=== PATIENT | female | born 1950 | race Caucasian/White ===

== ENCOUNTER → 2020-08-11 11:18 | Outpatient (BNVA) | payer MEDICARE, SELFPAY | PROVIDERS: PCP Family Medicine; Visit Provider Surgery | DX: K40.90 Unilateral inguinal hernia, without obstruction or gangrene, not specified as recurrent (principal) | CPT/HCPCS: 99202 ==

== ENCOUNTER 2020-09-06 13:17 | Outpatient (REF) | payer MEDICARE, SELFPAY ==
--- NOTE | ~2020-09-06 | CT_ITS ---
EXAMINATION: CT ABDOMEN AND PELVIS WITHOUT CONTRAST CLINICAL INFORMATION: Unilateral inguinal hernia COMPARISON: None TECHNIQUE: Multidetector volumetric imaging was performed from the superior aspect of the liver through the pubic symphysis. Sagittal and coronal reformatted images were obtained on the technologist's workstation. This CT examination was performed using dose optimization techniques as appropriate, variously including the following: *Automated exposure control *Adjustment of mA and/or kV according to patient size (this includes techniques or standardized protocols for targeted exams where dose is matched to indication/reason for exam; i.e. extremities or head) *Use of iterative reconstruction technique DLP: 739 mGy-cm FINDINGS: LUNG BASES: The visualized lung bases are clear. There is a moderate size esophageal hernia. LIVER, GALLBLADDER, AND BILIARY TREE: The liver is normal in size, shape, and attenuation. No focal hepatic lesion or biliary ductal dilatation is present. The gallbladder is unremarkable with no evidence of radiopaque gallstones, gallbladder wall thickening, or obvious pericholecystic inflammatory changes. PANCREAS: Unremarkable. SPLEEN: Unremarkable. ADRENAL GLANDS: Unremarkable. KIDNEYS AND URETERS: The kidneys are normal in size, shape, and attenuation. No hydronephrosis, hydroureter, or calculi seen. No perinephric stranding. BLADDER: Not optimally distended. GASTROINTESTINAL TRACT: There is diverticulosis of the colon. No evidence of diverticulitis is seen. The small and large bowel are otherwise unremarkable. The appendix is unremarkable. There is a moderate size esophageal hernia. ABDOMINAL WALL: There is a large right inguinal hernia containing fat. There is a smaller more lateral right groin hernia containing fat. Extends superiorly. This appears to be at the inferior margin of the rectus sheath and may represent an atypical appearing spigelian hernia. LYMPH NODES: Normal. VASCULAR: There is evidence of atherosclerotic disease. There is mild dilatation ectasia of the left lateral wall of the infrarenal abdominal aorta. This measures 2.2 x 2.5 cm in AP and transverse dimension axial image 35 series 3. PELVIC VISCERA: The uterus appears to have been removed. There is a 3 x 2.4 cm cyst in the right pelvis with a small area of wall calcification and questionable septation and a smaller 1.2 x 2 cm left pelvic cyst with wall calcification and central calcification questionable for bilateral adnexal cysts. OSSEOUS STRUCTURES: There are mild degenerative changes of the spine and hip joints. CT/CT abdomen pelvis wo con IMPRESSION: Large right inguinal hernia containing fat. Second more lateral smaller fat-containing hernia that courses superiorly, question representing atypical appearance of a spigelian hernia at the inferior margin of the rectus sheath. Moderate-sized esophageal hernia probably representing a hiatal hernia. Diverticulosis colon. Bilateral partially calcified complex pelvic cysts probably representing ovarian cysts. Follow-up pelvic ultrasound recommended.
== END 2020-09-06 13:18 | disposition home or self-care (01) ==
LOC: HO.CT 13:17
PROVIDERS: PCP Family Medicine; Visit Provider Surgery
DX: K40.90 Unilateral inguinal hernia, without obstruction or gangrene, not specified as recurrent (principal)
CPT/HCPCS: 74176

== ENCOUNTER 2020-09-07 07:47 | Day surgery (SDC) | payer MEDICARE, SELFPAY ==
[2020-09-01 14:46] VITALS: BMI 31.9
--- NOTE | 2020-09-06 09:12 | HO.ANESPROP2 ---
Documented by User: Cris Zhang 09/06/20 09:13 HPI - Anesthesia Eval Consult details Narrative: 70yo F for Right Hernia Repair Inguinal with Mesh PMFSH Active Problems Active Problems: All Active Problems (Updated 09/01/20 @ 14:06 by Raysa Horne) Hyperlipidemia (Acute) Hypertension (Acute) Right inguinal hernia (Acute) Past Medical History Medical History Anxiety COVID-19 vaccine series completed Depression GERD (gastroesophageal reflux disease) Hyperlipidemia Hypertension Right inguinal hernia Surgical History Surgical History History of hernia surgery History of lumpectomy of left breast History of partial hysterectomy History of shoulder replacement History of tonsillectomy Social History Social History Alcohol intake: never Smoking Status: Former smoker Smoking Quit Date: 2007 Use of substances other than those prescribed or required for medical reasons: No Are you DNR?: No Advance Directives: No Advance Directives Information Provided: No Advance Directives on File: No Meds Allergies Allergy/AdvReac Type Severity Reaction Status Date / Time pravastatin Allergy Intermediate muscle Verified 09/07/20 08:12 cramping amlodipine AdvReac Intermediate swelling Verified 09/07/20 08:12 lisinopril AdvReac Intermediate cough Verified 09/07/20 08:12 narcotics Allergy Intermediate Nausea and Uncoded 09/01/20 14:42 Vomiting Home Medications Medication Instructions Recorded Confirmed Last Taken Type calcium carbonate 600 mg (1,500 1 cap PO DAILY 08/11/20 09/01/20 Unknown History mg)-vitamin D3 500 unit capsule ezetimibe 10 mg tablet 10 mg PO DAILY 08/11/20 09/01/20 Unknown History hydrochlorothiazide 50 mg tablet 50 mg PO DAILY 08/11/20 09/01/20 Unknown History metoprolol succinate 100 mg 100 mg PO DAILY 08/11/20 09/01/20 Unknown History tablet,extended release 24 hr multivitamin 1 tab PO DAILY 08/11/20 09/01/20 Unknown History omeprazole 20 mg capsule,delayed 20 mg PO DAILY 08/11/20 09/01/20 Unknown History release Exam Exam Date and Time: September 06, 2020911 Height,Weight and Vital Signs: Height 5 ft 8 in Weight 95.254 kg Assessment and Plan Assessment Anesthesia Assessment: Chart Reviewed Documented by User: Lenore Bonds 09/07/20 09:05 PMFSH Past Medical History Medical History Anxiety COVID-19 vaccine series completed Depression GERD (gastroesophageal reflux disease) Hyperlipidemia Hypertension Right inguinal hernia Surgical History Surgical History History of hernia surgery History of lumpectomy of left breast History of partial hysterectomy History of shoulder replacement History of tonsillectomy Social History Social History Alcohol intake: never Smoking Status: Former smoker Smoking Quit Date: 2007 Use of substances other than those prescribed or required for medical reasons: No Are you DNR?: No Advance Directives: No Advance Directives Information Provided: No Advance Directives on File: No Meds Allergies Allergy/AdvReac Type Severity Reaction Status Date / Time pravastatin Allergy Intermediate muscle Verified 09/07/20 08:12 cramping amlodipine AdvReac Intermediate swelling Verified 09/07/20 08:12 lisinopril AdvReac Intermediate cough Verified 09/07/20 08:12 narcotics Allergy Intermediate Nausea and Uncoded 09/01/20 14:42 Vomiting Home Medications Medication Instructions Recorded Confirmed Last Taken Type calcium carbonate 600 mg (1,500 1 cap PO DAILY 08/11/20 09/01/20 Unknown History mg)-vitamin D3 500 unit capsule ezetimibe 10 mg tablet 10 mg PO DAILY 08/11/20 09/01/20 Unknown History hydrochlorothiazide 50 mg tablet 50 mg PO DAILY 08/11/20 09/01/20 Unknown History metoprolol succinate 100 mg 100 mg PO DAILY 08/11/20 09/01/20 Unknown History tablet,extended release 24 hr multivitamin 1 tab PO DAILY 08/11/20 09/01/20 Unknown History omeprazole 20 mg capsule,delayed 20 mg PO DAILY 08/11/20 09/01/20 Unknown History release Exam Airway Mallampati Class: III Neck ROM: Full Partial: Upper Loose/Missing/Broken Teeth: No Heart: RRR Lungs: CTA Assessment and Plan Assessment Anesthesia Assessment: Anesthesia Plan Discussed and Chart Reviewed Final Anesthetic Review NPO: Yes ASA Class: II Final Preanesthetic Review: Meds/Allgs Chart Reviewed, Consent Obtained/Reviewed and Anes Risks/Benef Reviewed Patient Risk: Low Procedure Risk: Low Anesthetic Plan Anesthetic Plan: GA Disposition: Standard PACU
[2020-09-07] VITALS (7 sets, daily range): BP systolic 128–146; BP diastolic 63–76; PULSE 57–71; RESP 16–20; TEMP 36.5–37; O2SAT 93–99
--- NOTE | 2020-09-07 08:23 | MHC.SHP ---
Pre-Procedural Eval Section B Chief Complaint: Right Inguinal Hernia Allergies: Allergies Allergy/AdvReac Type Severity Reaction Status Date / Time pravastatin Allergy Intermediate muscle Verified 09/07/20 08:12 cramping amlodipine AdvReac Intermediate swelling Verified 09/07/20 08:12 lisinopril AdvReac Intermediate cough Verified 09/07/20 08:12 narcotics Allergy Intermediate Nausea and Uncoded 09/01/20 14:42 Vomiting Plan I have reviewed the history and physical and performed a pertinent physical examination on my patient. No changes have occurred unless specified. CT done yesterday reviewed - possibly another small hernia, fat containing immediately lateral to right inguinal hernia.
[2020-09-07] MEDS: Lactated Ringers 1,000 ML 100 ML IVCONT (08:25)
--- NOTE | 2020-09-07 10:03 | P.OP_ITS ---
Operative Note Operative Note Date of Service: 09/07/20 Narrative: Preop diagnosis: Recurrent right inguinal hernia Postop diagnosis: Recurrent right inguinal hernia Procedure: Repair of recurrent right inguinal hernia with Prolene mesh Surgeon: Yandel Castro MD Enrollment Management Vice President: none The patient is a 70-year-old female who a mass on the right groin that was partially reducible consistent with an inguinal hernia. She actually stated that she had right inguinal hernia repair about 30 years ago without mesh. She had a CAT scan done showing a large fat containing right inguinal hernia. Adjacent to this immediately and laterally was another smaller fat-containing hernia as well. She understood the technique of repair of this right inguinal hernia with mesh. She was aware of the risks, benefits and alternatives. She was brought to the operating room and placed supine on table under general anesthesia via laryngeal mask airway. The right groin was prepped and draped in usual sterile fashion. A surgical time-out was done. The patient received cefazolin 2 g IV preoperati vely. I infiltrated the planned line incision using lidocaine 1%. I then made an incision on the skin generously using a blade number 15. This was carried down to full-thickness of skin and subcutaneous fat. The patient had thick amount subcutaneous fat so we continued to gently dissect this until we were able to visualize what appeared to be the fat-containing hernia. I bluntly dissected the rest of subcutaneous fat from the hernia until was able to clearly define this hernia along with the external ring. I dissected the external oblique external to achieve good exposure of the external ring. I continued to dissect the fat-containing hernia down to the external ring until I was was able to clearly visualize its neck through the external ring. I opened up the external ring by dividing the external oblique aponeurosis using electrocautery. I applied hemostats on both divided edges. I then proceeded to gently dissect the underside of this external oblique aponeurosis to create a pocket for the mesh. By doing so I was able to clearly visualize the internal ring along with the large herniated fat going through this. I was able to completely reduce the large hernia contents through this internal ring. By gently palpating more laterally and superiorly I was able to actually see another much smaller hernia also fat-containing. I therefore extended the incision on the external oblique aponeurosis more laterally. This allowed better visualization of this other smaller hernia. The patient had previous hernia surgery so there were adhesions tethering the internal oblique to the external oblique aponeurosis so we had to carefully divide these adhesions and gently dissect this to create better planes. Again the planes were not well defined because of the previous surgery. I was able to create what I felt was enough pocket between the external oblique aponeurosis and the internal oblique for the mesh to cover both defects. I used a 6 by 3 in flat Prolene mesh. I trimmed this to make sure that we were able to fit this within the pocket underneath the external oblique aponeurosis and not allow this to curl up. I flattened the mesh to overlie the entire floor of the canal and ensure coverage of the 2 hernias. I secured the mesh inferomedially to the pubic ramus using David 2 0 stitch and and ran this suture medially through the internal oblique. I then applied a separate Prolene 2-0 stitch to reappose the lateral edge of the mesh to the shelving edge of the inguinal ligament from inferomedially all the way laterally and superiorly. Applied separate sutures to the superior part of the mesh to secure this to the internal oblique more superiorly. I made sure that there were no significant gaps in between the sutures. I copiously irrigated. I observed to make sure we had good hemostasis. A mesh appeared secure and flat all the way superiorly and inferiorly. I then proceeded to close the overlying external oblique aponeurosis with runn ing Dexon 2-0 stitch to further flatten and secure the mesh on the floor of the canal. I continued this running Dexon 2-0 stitch although inferiorly to re- create the external ring. I then irrigated the thick layer of subcutaneous fat. I reapposed the thick subcutaneous layer with Dexon 3-0 interrupted sutures. Skin closure was achieved with Dexon 4-0 subcuticular running stitch. I then infiltrated the area with Marcaine 0.5% for postop analgesia. Steri-Strips and dressings where then applied. The procedure was then completed. The patient tolerated procedure well . No immediate complications. Initial final counts of sponges and instruments were correct. Estimated blood loss was about 15 cc. The patient was extubated without difficulty and transferred to recovery room with stable vital signs.
--- NOTE | 2020-09-07 10:11 | P.BOP_ITS ---
Brief Operative Note Date of Service: 09/07/20 Pre-op diagnosis: Right inguinal hernia recurrent Post-op diagnosis: same Procedure: Repair of recurrent right inguinal hernia with mesh Implants: Prolene mesh Surgeon: Yandel Castro MD Anesthesia: GLMA Was an Dietary Cook used for this Procedure?: No Estimated blood loss (mL): 15 Pathology: none sent Condition: stable Disposition: PACU
[2020-09-07] MEDS: HYDROmorphone HCl 2 MG TABLET 1 MG PO (10:35)
== END 2020-09-07 11:19 ==
LOC: HO.SSS 07:47
PROVIDERS: PCP Family Medicine; Visit Provider Surgery
PROC: (CPT 49520; principal; 2020-09-07 09:50)
DX: K40.91 Unilateral inguinal hernia, without obstruction or gangrene, recurrent (principal); K40.90 Unilateral inguinal hernia, without obstruction or gangrene, not specified as recurrent; I10 Essential (primary) hypertension; E78.5 Hyperlipidemia, unspecified; Z79.899 Other long term (current) drug therapy; Z88.8 Allergy status to other drugs, medicaments and biological substances; Z87.891 Personal history of nicotine dependence
CPT/HCPCS: 49520; C1781; J0690; J1100; J2250; J2405; J3010

== ENCOUNTER → 2020-09-20 10:29 | Outpatient (BNVA) | payer MEDICARE, SELFPAY | PROVIDERS: PCP Family Medicine; Visit Provider Surgery | DX: Z48.815 Encounter for surgical aftercare following surgery on the digestive system (principal); Z87.19 Personal history of other diseases of the digestive system | CPT/HCPCS: 99212 ==

== ENCOUNTER 2020-10-15 08:16 | Outpatient (REF) | payer MEDICARE, SELFPAY ==
--- NOTE | 2020-10-15 12:48 | MHC.AU.ANO ---
Adult Audiological Evaluation Date of Visit: 10/15/20 Reason for Appointment: Patient has been noticing difficulty hearing out of her left ear. She cannot recall an injury or illness that coincided with the reduction in hearing. Does patient feel they have a hearing loss?: Yes If Yes, Which Ear?: Left Ear When Was Hearing Difficulty First Noticed?: Patient is unsure, but feels it developed quickly Has hearing been tested previously?: No Hearing Handicap Inventory: HHIE SCORE: 32 Based on HHIE score, patient has: Severe perceived hearing handicap Ear History: Ear Deformity: None Reported Recent Ear Drainage: None Reported Recent Ear Pain: None Reported Family History of Hearing Loss?: Yes: Mother and Father Recent Ear Infections: None Reported Ear Infections in Childhood: None Reported History of Ear Wax Buildup: None Reported Previous Ear Surgery: None Reported Bothersome Tinnitus/Ringing/Noises in Ears: None Reported Ear used on the phone: Right Ear Blocked/Full Sensation in Ear(s): None Reported History of occupational noise exposure?: No History: No Medical History: Medical History: High Blood Pressure, Vascular Problems Otoscopy: Right Ear: Unremarkable Left Ear: Unremarkable Tympanometry: Tympanometry performed due to: To assess integrity of the middle ear system Right Ear: Normal Middle Ear System (Type A) Left Ear: Normal Middle Ear System (Type A) Hearing Evaluation: Transducer(s) Used: Circumaural Headphones Method: Conventional Audiometry Stimuli Used: Pure Tones Right Ear: Description of Hearing: Mild sloping to moderate and rising to mild sensorineural hearing loss Left Ear: Description of Hearing: Mild sloping to moderately-severe, rising to moderate and sloping to severe sensorineural hearing loss Speech Recognition Threshold (SRT): Method Used: Recorded Lists Stimuli Used: Spondee Words Right Ear: 40 dBHL Left Ear: 50 dBHL Word Discrimination: Method: Recorded Lists Word Lists Used: NU-6 Right Ear: 92% at 75 dBHL Left Ear: 84% at 80 dBHL Most Comfortable Level (MCL): Right Ear: 75 dBHL Left Ear: 80 dBHL Recommendations: Referral to Ear, Nose, and Throat is highly recommended to address asymmetrical sensorineural hearing loss. Patient has a pair of Phonak Bolero Q50-SP that belonged to her late . She would like to have the left hearing aid reprogrammed for her. See separate hearing aid follow-up report for details. Diagnosis: Primary Diagnosis: H90.3 Bilateral Sensorineural Hearing Loss Services Performed: Comprehensive Audiological Evaluation (CPT 59545), Tympanometry (CPT 04098) Signature: Provider: Tom Capps, CCC-A
--- NOTE | 2020-10-15 12:50 | MHC.AU.FUL ---
Hearing Instrument Follow-Up Date of Visit: 10/15/20 Left Ear: Archeologist: Phonak Model: Bolero Q50-SP Serial Number: [id number] Repair Warranty: 12/30/2014 Battery Size: 13 Tubing: Size 1 slim tube Type of Dome: Small Power Dome Date of Fitting: Transfer of care on 10/15/2020 Follow-Up Summary: Patient was seen for audiological evaluation. See report for details. Patient has a pair of Phonak Bolero B50-SP that belonged to her late and were originally dispensed from this clinic. She would like to have the left hearing aid reprogrammed for her left ear. Another family member may be using the right hearing aid; however, if they choose not to, then she may like the right hearing aid reprogrammed for her use as well. Hearing aid was reprogrammed. The old mold was thrown out and replaced with a size 1 slim tube and small open dome. Target gain set to 90% for patient comfort, as she felt her voice was too loud at 100%. Verifit was run and levels adjusted to better reach targets. Patient was pleased with the sound of the instrument. Volume control switch is enabled. Program button is deactivated. Hearing aid care and use were discussed and practiced. Recommendations: Hearing aid follow-up has been scheduled. Patient paid $185 transfer of care fee. Diagnosis Code(s): Primary Diagnosis: H90.3 Bilateral Sensorineural Hearing Loss Signature: Provider: Tom Capps, [facility]
== END 2020-10-15 08:17 | disposition home or self-care (01) ==
LOC: HO.SH 08:16
PROVIDERS: Visit Provider Family Medicine
DX: Z46.1 Encounter for fitting and adjustment of hearing aid (principal); H90.3 Sensorineural hearing loss, bilateral
CPT/HCPCS: 92557; 92567; V5011

== ENCOUNTER 2020-10-15 09:37 | Outpatient (REF) | payer SELFPAY | END 2020-10-15 09:38 | disposition home or self-care (01) | LOC: HO.HAP 09:37 | PROVIDERS: Visit Provider Family Medicine | DX: Z46.1 Encounter for fitting and adjustment of hearing aid (principal); H90.3 Sensorineural hearing loss, bilateral | CPT/HCPCS: V5011 ==

== ENCOUNTER 2021-04-04 09:52 | Outpatient (REF) | payer MEDICARE, SELFPAY ==
--- NOTE | ~2021-04-04 | US_ITS ---
EXAMINATION: US THYROID CLINICAL INFORMATION: Nontoxic multinodular goiter. COMPARISON: Ultrasound soft tissue head/neck thyroid dated 01/15/2020 and 12/09/2018. TECHNIQUE: Linear transducer grayscale and color Doppler examination with attention to the region of the thyroid. FINDINGS: SIZE: Measurements of the thyroid lobes and nodules are given in sagittal, anteroposterior and transverse dimensions respectively. Right Thyroid Lobe: 4.5 x 2.4 x 2.3 cm, volume 12.9 mL. Previously 0.0 x 2.1 x 2.2 cm, volume 9.7 mL. Parenchyma: The gland echotexture is homogeneous. Thyroid vascularity is increased. Left Thyroid Lobe: 3.9 x 0.9 x 1.6 cm, volume 2.9 mL. Previously 4.2 x 1.6 x 1.4 cm, volume 4.9 mL. Parenchyma: The gland echotexture is homogeneous. Thyroid vascularity is normal. Isthmus: 0.38 cm in maximum AP dimension. Previously 0.5 cm. total number of nodules greater than or equal to 1 cm: 1. Supervisor Felting nodules are described as follows: 1. Location: Right mid. Size: 2.0 x 1.3 x 1.8 cm, volume 2.3 mL. Previously: 2.3 x 1.5 x 2.0 cm, volume 3.6 mL. Nodule characteristics: Composition: Solid/almost completely solid (2). Echogenicity: Cannot be determined (1). Shape: Not taller than wide (0). Margins: Smooth (0). Echogenic Foci: None (0). ACR TI-RADS total points: 3 Previous: n/a ACR TI-RADS category: 3 Previous: n/a Significant change in size (>/= 20% in 2 dimensions and minimal increase of 2 mm or 50% or greater increase in volume): No Change in features: No Change in ACR TI-RADS risk category: n/a 2. Location: Right mid. Size: 0.44 x 0.34 x 0.48 cm, volume 0.04 mL. Previously: Not seen previously. Nodule characteristics: Composition: Solid (2). Echogenicity: Hypoechoic (2). Shape: Not taller than wide (0). Margins: Smooth (0). Echogenic Foci: Macrocalcifications (1). ACR TI-RADS total points: 5 Previous: n/a ACR TI-RADS category: 4 Previous: n/a Significant change in size (>/= 20% in 2 dimensions and minimal increase of 2 mm or 50% or greater increase in volume): No Change in features: No Change in ACR TI-RADS risk category: n/a 3. Location: Left mid. Size: 0.38 x 0.27 x 0.38 cm, volume 0.02 mL. Previously: 0.39 x 0.27 x 0.34 cm, volume 0.02 mL. Nodule characteristics: Composition: Solid (2). Echogenicity: Hypoechoic (2). Shape: Not taller than wide (0). Margins: Smooth (0). Echogenic Foci: None (0). ACR TI-RADS total points: 4 Previous: n/a ACR TI-RADS category: 4 Previous: n/a Significant change in size (>/= 20% in 2 dimensions and minimal increase of 2 mm or 50% or greater increase in volume): No Change in features: No Change in ACR TI-RADS risk category: n/a 4. Location: Left inferior. Size: 0.41 x 0.27 x 0.32 cm, volume 0.02 mL. Previously: 0.31 x 0.1 x 0.6 cm, volume 0.01 mL. Nodule characteristics: Composition: Solid (2). Echogenicity: Hyperechoic (1). Shape: Not taller than wide (0). Margins: Smooth (0). Echogenic Foci: None (0). ACR TI-RADS total points: 3 Previous: n/a ACR TI-RADS category: 3 Previous: n/a Significant change in size (>/= 20% in 2 dimensions and minimal increase of 2 mm or 50% or greater increase in volume): No Change in features: No Change in ACR TI-RADS risk category: n/a NODES: No lymphadenopathy is seen in the tissue surrounding the thyroid gland. US/US thyroid IMPRESSION: Previously noted nodules are stable. There is a new 5 mm maximum dimension Ti-RADS Category 4 nodule within the right mid gland. Continued follow-up is recommended for the category 3 and 4 nodules. ACR TI-RADS RECOMMENDATION REFERENCE: Ultrasound-guided fine-needle aspiration, followup ultrasound, no further follow up. * TR1 (0 point) and TR 2 (2 points): No FNA or follow up * TR3 (3 points): FNA if more than or equal to 2.5 cm in maximum dimension, followup ultrasound in 1, 3 and 5 years if 1.5 to 2.4 cm in maximum dimension. * TR4 (4-6 points): FNA if more than or equal to 1.5 cm in maximum dimension, followup ultrasound in 1, 2, 3 and 5 years if 1 to 1.4 cm in maximum dimension. * TR5 (more than or equal to 7 points): FNA if more than or equal to 1 cm in maximum dimension, followup ultrasound every year for 5 years if 0.5 to 0.9 cm in maximum dimension. * TR3, TR4 or TR5 nodules that are below the size threshold for follow up receive no follow up.
== END 2021-04-04 09:53 | disposition home or self-care (01) ==
LOC: HO.US 09:52
PROVIDERS: PCP Family Medicine; Visit Provider Internal Medicine
DX: E04.2 Nontoxic multinodular goiter (principal)
CPT/HCPCS: 76536

== ENCOUNTER → 2021-04-18 10:01 | Outpatient (BNVA) | payer MEDICARE, SELFPAY | PROVIDERS: PCP Family Medicine; Visit Provider Internal Medicine | DX: Z13.89 Encounter for screening for other disorder (principal) | CPT/HCPCS: Q3014 ==

== ENCOUNTER 2021-04-20 09:14 | Outpatient (REF) | payer MEDICARE, SELFPAY ==
[2021-04-20 12:03] LABS: COVID-19 Test Negative (Negative)
== END 2021-04-20 09:15 | disposition home or self-care (01) ==
LOC: HO.LAB 09:14
PROVIDERS: Visit Provider Internal Medicine
DX: Z20.822 Contact with and (suspected) exposure to COVID-19 (principal)
CPT/HCPCS: 36415; 87635; C9803

== ENCOUNTER → 2021-05-24 10:19 | Outpatient (BNVA) | payer MEDICARE, SELFPAY | PROVIDERS: PCP Family Medicine; Visit Provider Surgery Vascular Surgery | DX: I83.11 Varicose veins of right lower extremity with inflammation (principal) | CPT/HCPCS: 99212 ==

== ENCOUNTER 2021-05-30 07:49 | Outpatient (REF) | payer MEDICARE, SELFPAY ==
--- NOTE | ~2021-05-30 | US_ITS ---
EXAMINATION: US LOWER EXTREMITY VENOUS (REFLUX EXAM), BILATERAL CLINICAL INDICATION: This is a 70-year-old female with venous insufficiency and varicose veins. COMPARISON: None. TECHNIQUE: Color flow triplex imaging and compression Doppler was performed to evaluate both the deep and the superficial systems bilaterally. To evaluate the superficial system, the examination was performed in the upright position. Color-flow Doppler ultrasound and compression ultrasound were utilized. In addition, maneuvers were utilized to demonstrate reflux. FINDINGS: 1. DEEP VENOUS ULTRASOUND OF THE RIGHT LOWER EXTREMITY: Common Femoral Vein: Compressible, normal respiratory variation and augmented flow. Femoral vein: Compressible, normal color flow and augmentation. Popliteal Vein: Compressible, normal augmentation. Deep Reflux: There is no evidence of reflux in the deep system in either the common femoral vein or the popliteal vein. There is no evidence of a Liang's cyst. 2. SUPERFICIAL ULTRASOUND WITH DOPPLER OF RIGHT LOWER EXTREMITY: GREAT SAPHENOUS VEIN: Saphenofemoral Junction: 0.9 cm. The reflux time is 2184 ms. Mid Thigh: 0.4 cm. The reflux time is 2932 ms. Above Knee: 0.3 cm. The reflux time is 2708 ms. Below Knee: 0.2 cm. There is no reflux. Mid Calf: 0.3 cm. The reflux time is 2100 ms. Ankle: 0.2 cm. There is no reflux. GSV REFLUX: There is reflux in the great saphenous vein extending from the saphenofemoral junction. DUPLICATED GREAT SAPHENOUS VEIN: There is a duplicated medial great saphenous vein measuring 0.5 cm without reflux. SMALL SAPHENOUS VEIN: Proximal: 0.2 cm Distal: 0.2 cm SSV REFLUX: No evidence of reflux. VEIN OF GIACOMINI: None Imaged. PERFORATORS: None Imaged VARICOSITIES: There are 0.6 cm, 0.4 cm, 0.5 cm varicose veins in the proximal thigh and below the knee, respectively. There is greater than 2 seconds of reflux in these varicose veins. 3. DEEP VENOUS ULTRASOUND OF THE LEFT LOWER EXTREMITY: Common Femoral Vein: Compressible, normal respiratory variation and augmented flow. Femoral Vein: Compressible, normal color flow and augmentation. Popliteal Vein: Compressible, normal augmentation. Deep Reflux: There is no evidence of reflux in the deep system in either the common femoral vein or the popliteal vein. There is no evidence of a Liang's cyst. 4. SUPERFICIAL ULTRASOUND WITH DOPPLER OF LEFT LOWER EXTREMITY: GREAT SAPHENOUS VEIN: Saphenofemoral Junction: 0.8 cm. The reflux time is 1680 ms. Mid Thigh: 0.3 cm. There is no reflux. Above Knee: 0.4 cm. The reflux time is 2544 ms. I will note that the great saphenous vein is not seen at the knee level. Below Knee: 0.4 cm. There is no reflux. Mid Calf: 0.2 cm. The reflux time is 1644 ms. Ankle: 0.3 cm. The reflux time is 1416 ms. GSV REFLUX: No evidence of reflux. DUPLICATED GREAT SAPHENOUS VEIN: There is a 0.4 cm duplicated medial great saphenous vein without reflux. SMALL SAPHENOUS VEIN: Proximal: 0.3 cm Distal: 0.3 cm SSV REFLUX: No evidence of reflux. VEIN OF GIACOMINI: None Imaged. PERFORATORS: None Imaged VARICOSITIES: There are 0.3 cm proximal thigh and below knee, respectively, varicose veins. Below the knee the reflux time is 2184 ms. The proximal thigh varicose vein does not have reflux. US/US venous duplex LE BI IMPRESSION: 1. There is a patent right great saphenous vein with reflux at the saphenofemoral junction. 2. There is a patent right small saphenous vein without reflux. 3. There is a patent right duplicated medial great saphenous vein without reflux. 4. There are varicose veins with reflux in the proximal right thigh and right knee, respectively. 5. There is a patent left great saphenous vein with reflux at the saphenofemoral junction. 6. There is a patent duplicated medial left great saphenous vein without reflux. 7. There is a patent left small saphenous vein without reflux. 8. There are varicose veins on the left measuring 0.3 cm as noted.
== END 2021-05-30 07:50 | disposition home or self-care (01) ==
LOC: HO.US 07:49
PROVIDERS: Visit Provider Surgery Vascular Surgery
DX: I83.11 Varicose veins of right lower extremity with inflammation (principal)
CPT/HCPCS: 93970

== ENCOUNTER → 2021-06-07 10:50 | Outpatient (BNVA) | payer MEDICARE, SELFPAY | PROVIDERS: PCP Family Medicine; Visit Provider Surgery Vascular Surgery | DX: I83.11 Varicose veins of right lower extremity with inflammation (principal) | CPT/HCPCS: 99212 ==

== ENCOUNTER 2021-06-13 06:04 | Day surgery (SDC) | payer MEDICARE, SELFPAY ==
--- NOTE | 2021-06-10 10:26 | HO.ANESPROP2 ---
Documented by User: Cris Zhang NP 06/10/21 10:30 HPI - Anesthesia Eval Consult details Narrative: 70yo F for Right Phlebectomy-micro s/p hernia repair 09/2020 with GA-LMA 4 PMFSH Active Problems Active Problems: All Active Problems (Updated 05/24/21 @ 10:46 by Demetrius Gutierres MD) Varicose veins of right lower extremity with inflammation (Acute) Multinodular thyroid (Acute) Hyperlipidemia (Acute) Hypertension (Acute) Right inguinal hernia (Acute) Past Medical History Medical History Anxiety COVID-19 vaccine series completed Depression GERD (gastroesophageal reflux disease) Hyperlipidemia Hypertension Multinodular thyroid Right inguinal hernia Family History Family History Father Congestive heart failure Mother No problems noted. Surgical History Surgical History History of appendectomy History of hernia surgery History of lumpectomy of left breast History of partial hysterectomy History of shoulder replacement History of tonsillectomy Hx of biopsy Hx of colonoscopy Social History Social History Alcohol intake: never Patient Tobacco Use Status: Former Tobacco user Use of substances other than those prescribed or required for medical reasons: No Have you been hit, kicked, punched, or otherwise hurt by someone within the past year? If so, by whom?: No Advance Directives: No Advance Directives Information Provided: Yes Recently lost weight without trying: No Nutrition Risks: No Nutritional Risk Patient : No Meds Allergies Allergy/AdvReac Type Severity Reaction Status Date / Time pravastatin Allergy Intermediate muscle Verified 06/07/21 10:55 cramping amlodipine AdvReac Intermediate swelling Verified 06/07/21 10:55 lisinopril AdvReac Intermediate cough Verified 06/07/21 10:55 narcotics Allergy Intermediate Nausea and Uncoded 06/07/21 10:55 Vomiting Home Medications Medication Instructions Recorded Confirmed Last Taken Type calcium carbonate 600 mg-vitamin 1 cap PO DAILY 08/11/20 04/18/21 Unknown History D3 12.5 mcg (500 unit) capsule (Calcium 600 with Vitamin D3) ezetimibe 10 mg tablet 10 mg PO DAILY 08/11/20 04/18/21 06/13/21 History hydrochlorothiazide 50 mg tablet 50 mg PO DAILY 08/11/20 04/18/21 06/13/21 History metoprolol succinate 100 mg 100 mg PO DAILY 08/11/20 04/18/21 06/13/21 History tablet,extended release 24 hr multivitamin 1 tab PO DAILY 08/11/20 04/18/21 Unknown History omeprazole 20 mg capsule,delayed 20 mg PO DAILY 08/11/20 04/18/21 06/13/21 History release lorazepam 1 mg tablet 1 mg PO BEDTIME PRN 04/18/21 04/18/21 Unknown History ropinirole 0.5 mg tablet 0.5 mg PO BEDTIME 04/18/21 04/18/21 Unknown History Exam Exam Date and Time: June 10, 2021 102 Assessment and Plan Assessment Anesthesia Assessment: Chart Reviewed Documented by User: Shlomo Coe MD 06/13/21 07:12 [facility] Past Medical History Medical History Anxiety COVID-19 vaccine series completed Depression GERD (gastroesophageal reflux disease) Hyperlipidemia Hypertension Multinodular thyroid Right inguinal hernia Family History Family History Father Congestive heart failure Mother No problems noted. Family history of problems with anesthesia: No Surgical History Surgical History History of appendectomy History of hernia surgery History of lumpectomy of left breast History of partial hysterectomy History of shoulder replacement History of tonsillectomy Hx of biopsy Hx of colonoscopy History of Problems with Anesthesia: No Social History Social History Alcohol intake: never Patient Tobacco Use Status: Former Tobacco user Use of substances other than those prescribed or required for medical reasons: No Have you been hit, kicked, punched, or otherwise hurt by someone within the past year? If so, by whom?: No Advance Directives: No Advance Directives Information Provided: Yes Recently lost weight without trying: No Nutrition Risks: No Nutritional Risk Patient : No Meds Allergies Allergy/AdvReac Type Severity Reaction Status Date / Time pravastatin Allergy Intermediate muscle Verified 06/07/21 10:55 cramping amlodipine AdvReac Intermediate swelling Verified 06/07/21 10:55 lisinopril AdvReac Intermediate cough Verified 06/07/21 10:55 narcotics Allergy Intermediate Nausea and Uncoded 06/07/21 10:55 Vomiting Home Medications Medication Instructions Recorded Confirmed Last Taken Type calcium carbonate 600 mg-vitamin 1 cap PO DAILY 08/11/20 04/18/21 Unknown History D3 12.5 mcg (500 unit) capsule (Calcium 600 with Vitamin D3) ezetimibe 10 mg tablet 10 mg PO DAILY 08/11/20 04/18/21 06/13/21 History hydrochlorothiazide 50 mg tablet 50 mg PO DAILY 08/11/20 04/18/21 06/13/21 History metoprolol succinate 100 mg 100 mg PO DAILY 08/11/20 04/18/21 06/13/21 History tablet,extended release 24 hr multivitamin 1 tab PO DAILY 08/11/20 04/18/21 Unknown History omeprazole 20 mg capsule,delayed 20 mg PO DAILY 08/11/20 04/18/21 06/13/21 History release lorazepam 1 mg tablet 1 mg PO BEDTIME PRN 04/18/21 04/18/21 Unknown History ropinirole 0.5 mg tablet 0.5 mg PO BEDTIME 04/18/21 04/18/21 Unknown History Exam Airway Mallampati Class: II TM Dist: >3cm Neck ROM: Full Partial: Lower Loose/Missing/Broken Teeth: Yes Heart: [id number] Lungs: cta b/l Assessment and Plan Assessment Anesthesia Assessment: Anesthesia Plan Discussed Final Anesthetic Review Family History of Problems with Anesthesia: No History of Problems with Anesthesia: No NPO: Yes ASA Class: II Final Preanesthetic Review: No Changes in Pt Med Stat, Meds/Allgs Chart Reviewed, Consent Obtained/Reviewed and Anes Risks/Benef Reviewed Patient Risk: Intermediate Procedure Risk: Low Assessment/Block/Sedation in SS: Assess/Block/Sedation-SS Anesthetic Plan Anesthetic Plan: GA and Agree w/ Assess. and Plan Disposition: Standard PACU
[2021-06-13] VITALS (8 sets, daily range): BP systolic 114–165; BP diastolic 53–93; PULSE 54–63; RESP 17–18; TEMP 36.1–36.5; O2SAT 92–100; BMI 30.4
[2021-06-13] MEDS: Lactated Ringers 1,000 ML 100 ML IVCONT (06:30)
--- NOTE | 2021-06-13 07:49 | MHC.SHP ---
Pre-Procedural Eval Section A Date of Service: 06/13/21 The patient is an INPATIENT: No Changes since office visit: Yes Patient answered all questions The History & Physical has been completed within 30 days and I have reviewed it.: Yes Section B Chief Complaint: vericose veins Allergies: Allergies Allergy/AdvReac Type Severity Reaction Status Date / Time pravastatin Allergy Intermediate muscle Verified 06/07/21 10:55 cramping amlodipine AdvReac Intermediate swelling Verified 06/07/21 10:55 lisinopril AdvReac Intermediate cough Verified 06/07/21 10:55 narcotics Allergy Intermediate Nausea and Uncoded 06/07/21 10:55 Vomiting Plan I have reviewed the history and physical and performed a pertinent physical examination on my patient. No changes have occurred unless specified.
--- NOTE | 2021-06-13 09:13 | P.OP_ITS ---
Operative Note Operative Note Date of Service: 06/13/21 Narrative: Operative note by [facility] Preoperative diagnosis:Right leg varicose veins with inflammation Postoperative diagnosis: same Procedure: right leg microphlebectomy Surgeon:Demetrius Gutierres M.D. Email Production Specialist: grecia Anesthesia: general Specimens: 1 Drains: none Estimated blood loss: 50 mL Indications: very pleasant 70-year-old female with a history of varicose veins. She has undergone venous insufficiency testing. She has significant right lower extremity large varicosities greater than 3 mm that have been quite painful and uncomfortable for her. She now presents for operative intervention. The patient has signed the informed consent after reviewing risks, complications, benefits, and alternatives previously discussed with the patient. The patient was given the opportunity to ask any additional questions or voice any concerns. All questions were answered to the patient's satisfaction. Procedure in detail:Varicose veins were marked in the standing position on the right leg and the patient was then placed in the supine position. The right lower extremity was prepared and draped to allow knee flexion in the sterile field. The patient had large superficial varicose veins with significant symptoms of pain. It was therefore determined to perform microphlebectomies of the clusters of varicose veins. The patient had bulging varicose veins which were previously marked in the standing position. A small stab incision was made longitudinally directly overlying the varicose vein in the calf and the varicose vein was grasped with a hemostat aided by a vein hook. It was then dissected as far proximally and distally as possible and avulsed. A total of 25 stab incisions were made and the procedure of stab phlebectomies was repeated 25 times. Hemostasis was checked and stab incision sites were closed with steri-strips and sterile dressing was given with gauze and krilex wrap followed by an tooniel bandage. There were no complications and blood loss was 50 ml. Post-Op instructions were given and a follow-up appointment was recommended. This note is constructed using voice recognition software. While every effort has been made to ensure accuracy, supervisor advertising dispatch clerks errors may have been included. Thank you for allowing me to participate in the care of your patient. Yours sincerely, Demetrius Gutierres MD, FACS, R.P.V.I.
[2021-06-13] MEDS: oxyCODONE HCl Immed Release 5 MG TABLET 10 MG PO (09:19)
== END 2021-06-13 10:53 | disposition home or self-care (01) ==
PROVIDERS: PCP Family Medicine; Visit Provider Surgery Vascular Surgery
PROC: (CPT 37766; principal; 2021-06-13 07:30)
DX: I83.11 Varicose veins of right lower extremity with inflammation (principal); M79.661 Pain in right lower leg; I10 Essential (primary) hypertension; F41.1 Generalized anxiety disorder; F32.9 Major depressive disorder, single episode, unspecified; Z79.899 Other long term (current) drug therapy; Z88.8 Allergy status to other drugs, medicaments and biological substances; Z87.891 Personal history of nicotine dependence
CPT/HCPCS: 37766; 88304; J0690; J2250; J2405; J3010

== ENCOUNTER 2021-07-02 15:31 | Outpatient (REF) | payer MEDICARE, SELFPAY | END 2021-07-02 15:32 | disposition home or self-care (01) | LOC: HO.LNP 15:31 | PROVIDERS: Visit Provider Physician Assistant Medical | DX: L03.012 Cellulitis of left finger (principal) | CPT/HCPCS: 87071; 87077; 87186; 87205 ==

== ENCOUNTER → 2021-07-05 11:43 | Outpatient (BNVA) | payer MEDICARE, SELFPAY | PROVIDERS: PCP Family Medicine; Visit Provider Surgery Vascular Surgery | DX: I83.12 Varicose veins of left lower extremity with inflammation (principal); Z98.890 Other specified postprocedural states | CPT/HCPCS: 99212 ==

== ENCOUNTER 2022-06-08 10:28 | Outpatient (REF) | payer MEDICARE, SELFPAY ==
--- NOTE | ~2022-06-08 | US_ITS ---
EXAMINATION: US THYROID CLINICAL INFORMATION: Nontoxic multinodular goiter. COMPARISON: Ultrasound thyroid 04/04/2021 and 01/15/2020. CT soft tissue neck with contrast 09/13/2018. US-guided thyroid biopsy 01/16/2019. TECHNIQUE: Linear transducer grayscale and color Doppler examination with attention to the region of the thyroid. FINDINGS: SIZE: Measurements of the thyroid lobes and nodules are given in sagittal, anteroposterior and transverse dimensions respectively. Right Thyroid Lobe: 4.4 x 2.4 x 2.0 cm, volume 11.1 mL. Previously 4.5 x 2.4 x 2.3 cm, volume 12.9 mL. Parenchyma: The gland echotexture is heterogeneous. Thyroid vascularity is increased. Left Thyroid Lobe: 4.6 x 1.9 x 1.5 cm, volume 6.8 mL. Previously 3.9 x 0.9 x 1.6 cm, volume 2.9 mL. Parenchyma: The gland echotexture is heterogeneous. Thyroid vascularity is normal. Isthmus: 0.4 cm in maximum AP dimension. Previously 0.4 cm. Estimated total number of nodules greater than or equal to 1 cm: 1. Coal Getter nodules are described as follows: 1. Location: Right mid. Size: 2.3 x 1.3 x 2.2 cm, volume 3.4 mL. Previously: 2.0 x 1.3 x 1.8 cm, volume 2.3 mL. Nodule characteristics: Composition: Solid/almost completely solid (2). Echogenicity: Hyperechoic (1). Shape: Not taller than wide (0). Margins: Smooth (0). Echogenic Foci: None (0). ACR TI-RADS total points: 3 Previous: 3 ACR TI-RADS category: 3 Previous: 3 Significant change in size (>/= 20% in 2 dimensions and minimal increase of 2 mm or 50% or greater increase in volume): None Change in features: None Change in ACR TI-RADS risk category: No change 2. Location: Right mid. Size: 0.5 x 0.4 x 0.4 cm, volume 0.05 mL. Previously: 0.4 x 0.3 x 0.5 cm, volume 0.03 mL. Nodule characteristics: Composition: Solid (2). Echogenicity: Isoechoic (1). Shape: Not taller than wide (0). Margins: Smooth (0). Echogenic Foci: None (0). ACR TI-RADS total points: 3 Previous: 5 ACR TI-RADS category: 3 Previous: 4 Significant change in size (>/= 20% in 2 dimensions and minimal increase of 2 mm or 50% or greater increase in volume): None Change in features: None Change in ACR TI-RADS risk category: Minimal. 3. Location: Left superior. Size: 0.3 x 0.2 x 0.3 cm, volume 0.01 mL. Previously: 0.4 x 0.3 x 0.3 cm, volume 0.02 mL. Nodule characteristics: Composition: Solid (2). Echogenicity: Hyperechoic (1). Shape: Not taller than wide (0). Margins: Smooth (0). Echogenic Foci: None (0). ACR TI-RADS total points: 3 Previous: 4 ACR TI-RADS category: 3 Previous: 4 Significant change in size (>/= 20% in 2 dimensions and minimal increase of 2 mm or 50% or greater increase in volume): None Change in features: None Change in ACR TI-RADS risk category: No change 4. Location: Left mid. Size: 0.5 x 0.3 x 0.3 cm, volume 0.02 mL. Previously: 0.4 x 0.3 x 0.4 cm, volume 0.02 mL. Nodule characteristics: Composition: Solid (2). Echogenicity: Isoechoic (1). Shape: Not taller than wide (0). Margins: Smooth (0). Echogenic Foci: None (0). ACR TI-RADS total points: 3 Previous: 3 ACR TI-RADS category: 3 Previous: 3 Significant change in size (>/= 20% in 2 dimensions and minimal increase of 2 mm or 50% or greater increase in volume): None Change in features: None Change in ACR TI-RADS risk category: No change 5. Location: Left inferior. Size: 0.2 x 0.3 x 0.3 cm, volume 0.01 mL. Previously: Not documented on the previous study. Nodule characteristics: Composition: Mixed cystic and solid (1). Echogenicity: Cannot be determined (1). Shape: Not taller than wide (0). Margins: Smooth (0). Echogenic Foci: Comet-tail artifacts (0). ACR TI-RADS total points: 2 ACR TI-RADS category: 2 NODES: No lymphadenopathy is seen in the tissue surrounding the thyroid gland. US/US thyroid IMPRESSION: Multiple bilateral thyroid nodules are stable. ACR TI-RADS RECOMMENDATION REFERENCE: Ultrasound-guided fine-needle aspiration, followup ultrasound, no further follow up. * TR1 (0 point) and TR2 (2 points): No FNA or follow up. * TR3 (3 points): FNA if more than or equal to 2.5 cm in maximum dimension, followup ultrasound in 1, 3 and 5 years if 1.5 to 2.4 cm in maximum dimension. * TR4 (4-6 points): FNA if more than or equal to 1.5 cm in maximum dimension, followup ultrasound in 1, 2, 3 and 5 years if 1 to 1.4 cm in maximum dimension. * TR5 (more than or equal to 7 points): FNA if more than or equal to 1 cm in maximum dimension, followup ultrasound every year for 5 years if 0.5 to 0.9 cm in maximum dimension. * TR3, TR4 or TR5 nodules that are below the size threshold for followup receive no follow up.
[2022-06-08 12:27] LABS: Free T4 (Free Thyroxine) 0.95 ng/dL (0.71-1.85); Thyroid Stimulating Hormone 1.53 uIU/mL (0.32-4.0)
== END 2022-06-08 10:29 | disposition home or self-care (01) ==
LOC: HO.US 10:28
PROVIDERS: PCP Family Medicine; Visit Provider Internal Medicine
DX: E04.2 Nontoxic multinodular goiter (principal)
CPT/HCPCS: 36415; 76536; 84439; 84443

== ENCOUNTER → 2022-06-15 13:51 | Outpatient (BNVA) | payer MEDICARE, SELFPAY | PROVIDERS: PCP Family Medicine; Visit Provider Internal Medicine | DX: E04.2 Nontoxic multinodular goiter (principal) | CPT/HCPCS: 99212 ==

== ENCOUNTER 2022-06-23 16:45 | Outpatient (REF) | payer MEDICARE, SELFPAY ==
--- NOTE | ~2022-06-23 | CT_ITS ---
EXAMINATION: CT SOFT TISSUE NECK WITHOUT CONTRAST CLINICAL INFORMATION: Nontoxic multinodular goiter. COMPARISON: Thyroid ultrasound 06/08/2022. CT scan of the neck 02/08/2019. TECHNIQUE: Helical imaging was performed in the axial plane with generation of coronal and sagittal reformatted images. Some images are degraded by patient motion artifact and beam hardening artifact from the patient's right shoulder arthroplasty. This CT examination was performed using dose optimization techniques as appropriate, variously including the following: *Automated exposure control *Adjustment of mA and/or kV according to patient size (this includes techniques or standardized protocols for targeted exams where dose is matched to indication/reason for exam; i.e. extremities or head) *Use of iterative reconstruction technique DLP: 384 mGy-cm FINDINGS: There is no cervical lymphadenopathy. There are small lymph nodes at multiple levels in the neck bilaterally. The parotid glands are homogeneous in attenuation. The submandibular glands are normal. No contour abnormality is seen within the oral cavity or pharyngeal mucosal space. The laryngeal structures are normal. The parapharyngeal fat is preserved. There are atheromatous calcifications of the carotid bifurcations. No extra mucosal soft tissue mass or fluid collection is seen. No retropharyngeal fluid collection is seen. The right lobe of the thyroid gland is prominent compared to the left. The heterogenous attenuation of the thyroid gland is better demonstrated on the prior post contrast and ultrasound studies. The superior mediastinum is unremarkable. There are emphysematous changes in the upper lung morris. The mastoid air cells and visualized portions of the paranasal sinuses are well-aerated. 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 No periapical disease is identified. There are no acute osseous findings. There are spondylitic and facet arthropathic changes at multiple levels. The imaged portions of the brain parenchyma are unremarkable. CT/CT soft tissue neck wo IV con IMPRESSION: 1. There is no cervical lymphadenopathy. There are small lymph nodes at multiple levels in the neck bilaterally. 2. The thyroid gland is prominent, demonstrated on prior imaging. The heterogenous attenuation of the thyroid gland is better demonstrated on the prior post contrast CT and ultrasound studies. 3. 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
== END 2022-06-23 16:46 | disposition home or self-care (01) ==
LOC: HO.CT 16:45
PROVIDERS: Visit Provider Internal Medicine
DX: E04.2 Nontoxic multinodular goiter (principal)
CPT/HCPCS: 70490

== ENCOUNTER 2023-05-05 09:03 | Outpatient (AMB) | payer MEDICARE, SELFPAY ==
--- NOTE | 2023-05-05 09:32 | MHC.OFFWIV ---
Intake Vital Signs 05/05/23 09:36 Height 5 ft 8 in Weight 218 lb BMI 33.1 BP 134/90 H Blood Pressure Location Lt brachial Position Sitting Pulse 74 Pulse Source Pulse Oximeter Temp 98.0 F Temp Source Oral Pulse Oximetry (%) 95 Oxygen Delivery Method Room Air Intake Visit Reasons: EST/mouth infection([phone]) Intake Note: Pt is here today c/o infection in her mouth sore gum Lt caridad of cheek swollen Patient Tobacco Use Status: Former Tobacco user Allergies pravastatin Allergy (Intermediate, Verified 05/05/23 09:32) muscle cramping amlodipine Adverse Reaction (Intermediate, Verified 05/05/23 09:32) swelling lisinopril Adverse Reaction (Intermediate, Verified 05/05/23 09:32) cough narcotics Allergy (Intermediate, Uncoded 05/05/23 09:32) Nausea and Vomiting HPI HPI Comments History of Present Illness Details This is a 72-year-old female with a past medical history of hypertension presenting for evaluation of dental pain and left cheek swelling. Patient states that she noted 3 days ago a cut on her gingiva between her teeth and her left cheek of the upper dentition. Patient denies having any fevers, chills, sore throat or overt tooth pain but just describes generalized discomfort and left facial pain. Patient has taken Advil only without relief of her symptoms. [facility] Medical History Multinodular thyroid GERD (gastroesophageal reflux disease) COVID-19 vaccine series completed Depression Anxiety Hyperlipidemia Hypertension Right inguinal hernia Surgical History H/O vein stripping (06/13/21) History of appendectomy History of hernia surgery History of lumpectomy of left breast History of partial hysterectomy History of shoulder replacement History of tonsillectomy Hx of biopsy Hx of colonoscopy Family History Father Congestive heart failure Mother No problems noted. Social History Alcohol intake: never Patient Tobacco Use Status: Former Tobacco user Review of Systems Const All systems reviewed & are unremarkable except as noted in HPI and below Denies chills, Denies fever(s) and Denies malaise ENT Reports no additional complaints, Reports facial pain (left cheek), Reports mouth pain (left upper dentition and buccal mucosae), Denies neck pain and Denies throat swelling Card Reports no additional complaints Resp Reports no additional complaints Musc Denies neck pain Endo Reports no additional complaints Aller/Immun Denies throat swelling Physical Exam Vital Signs: Last Vital Signs Temp 98.0 F 05/05/23 09:36 Pulse 74 05/05/23 09:36 BP 134/90 H 05/05/23 09:36 Pulse Ox 95 05/05/23 09:36 Oxygen Delivery Method Room Air 05/05/23 09:36 BMI result Body Mass Index 33.1 Const General: cooperative, healthy appearing, comfortable, alert and awake; No lethargic Nutritional Appearance: average body habitus Orientation/consciousness: patient oriented x3 and No lethargic Limitations: no limitations HEENT Head: Yes normal to inspection Ears: hearing grossly normal bilaterally, external ears normal, TM's normal bilaterally and EAC's normal General nose exam: Normal external nose present Face and sinus: Yes other (discomfort to palpation overlying the left maxilla and medial zygoma) Mouth: abnormal oral mucosae, no drooling and Abnormal oral and palatal mucosa present (left upper gingivae, minimal edema adjacent buccal mucosae) erythematous and edematous Teeth and gingiva: dentition normal (No pain to palpation of the left upper dentition, no dental avulsions ) and abnormal gingiva Throat: Yes posterior oropharynx normal and No postnasal drainage Eyes General: appearance normal, both eyes and all related structures Sclerae: sclerae normal Corneas: corneas normal Pupils: Equal, round and reactive pupils present EOM: EOMs intact bilaterally Neck Lymphatic: no lymphadenopathy noted Cardio Rate: regular rate Rhythm: regular rhythm Neuro General: patient oriented x3 Cranial nerves: Yes Equal, round and reactive pupils present Psych Appearance: grossly normal Mental Status: mental status grossly normal Insight: Good insight present (Psych) Judgement: Good judgement present (Psych) Assessment & Plan Assessment & Plan (1) Gingivitis: Code(s): K05.10 - Chronic gingivitis, plaque induced Plan: Patient's history coupled with her examination is most consistent with a localized gingivitis however may extend to a dental abscess without treatment. Patient will be prescribed amoxicillin encouraged follow-up with her dentist as an outpatient. Plan Amoxicillin t.i.d. x7 days; patient will follow-up with her dentist as an outpatient if her symptoms do not improve. Medications: New amoxicillin 500 mg PO TID 21 caps 0RF Coding Level of Care Code Est Pt Level 3 (84231) Diagnoses Gingivitis K05.10 Time Spent (min) 20
[2023-05-05 09:36] VITALS: BP 134/90; PULSE 74; TEMP 36.7; O2SAT 95; BMI 33.1
== END 2023-05-05 10:39 | disposition home or self-care (01) ==
PROVIDERS: PCP Family Medicine; Visit Provider Physician Assistant
DX: K05.10 Chronic gingivitis, plaque induced (principal)
CPT/HCPCS: 99213

== ENCOUNTER 2023-05-31 12:14 | Outpatient (REF) | payer MEDICARE, SELFPAY ==
--- NOTE | ~2023-05-31 | US_ITS ---
EXAMINATION: US THYROID CLINICAL INFORMATION: Nontoxic multinodular goiter. COMPARISON: CT soft tissue neck without contrast 06/23/2022. Thyroid ultrasound 06/18/2022 and 04/04/2021. Ultrasound-guided thyroid biopsy 01/16/2019. TECHNIQUE: Linear transducer grayscale and color Doppler examination with attention to the region of the thyroid. FINDINGS: SIZE: Measurements of the thyroid lobes and nodules are given in sagittal, anteroposterior and transverse dimensions respectively. Right Thyroid Lobe: 4.4 x 2.4 x 2.5 cm, volume 13.8 mL. Previously 4.4 x 2.4 x 2.0 cm, volume 11.1 mL. Parenchyma: The gland echotexture is homogeneous. Thyroid vascularity is increased. Left Thyroid Lobe: 4.2 x 1.5 x 1.4 cm, volume 4.6 mL. Previously 4.6 x 1.9 x 1.5 cm, volume 6.8 mL. Parenchyma: The gland echotexture is homogeneous. Thyroid vascularity is normal. Isthmus: 0.4 cm in maximum AP dimension. Previously 0.4 cm. Estimated total number of nodules greater than or equal to 1 cm: 1. Ad Taker nodules are described as follows: 1. Location: Right mid. Size: 2.4 x 1.6 x 2.2 cm, volume 4.39 mL. Previously: 2.0 x 1.3 x 1.8 cm, volume 2.3 mL. Nodule characteristics: Composition: Solid/almost completely solid (2). Echogenicity: Isoechoic (1). Shape: Not taller than wide (0). Margins: Smooth (0). Echogenic Foci: None (0). ACR TI-RADS total points: 3 Previous: 3 ACR TI-RADS category: 3 Previous: 3 Significant change in size (>/= 20% in 2 dimensions and minimal increase of 2 mm or 50% or greater increase in volume): Yes Change in features: No Change in ACR TI-RADS risk category: No 2. Location: Left superior/mid. Size: 0.4 x 0.2 x 0.4 cm, volume 0.02 mL. Previously: 0.5 x 0.3 x 0.3 cm, volume 0.02 mL. Nodule characteristics: Composition: Spongiform (0). Echogenicity: Anechoic (0). Shape: Not taller than wide (0). Margins: Smooth (0). Echogenic Foci: None (0). ACR TI-RADS total points: 0 Previous: 3 ACR TI-RADS category: 1 Previous: 3 Significant change in size (>/= 20% in 2 dimensions and minimal increase of 2 mm or 50% or greater increase in volume): No Change in features: Yes Change in ACR TI-RADS risk category: Yes 3. Location: Left superior. Size: 0.4 x 0.2 x 0.3 cm, volume 0.01 mL. Previously: 0.3 x 0.2 x 0.3 cm, volume 0.01 mL. Nodule characteristics: Composition: Solid (2). Echogenicity: Hyperechoic (1). Shape: Not taller than wide (0). Margins: Smooth (0). Echogenic Foci: None (0). ACR TI-RADS total points: 3 Previous: 3 ACR TI-RADS category: 3 Previous: 3 Significant change in size (>/= 20% in 2 dimensions and minimal increase of 2 mm or 50% or greater increase in volume): No Change in features: No Change in ACR TI-RADS risk category: No NODES: No lymphadenopathy is seen in the tissue surrounding the thyroid gland. US/US thyroid IMPRESSION: Routine sonographic surveillance of right mid nodule. ACR TI-RADS RECOMMENDATION REFERENCE: Ultrasound-guided fine-needle aspiration, follow up ultrasound, no further followup. * TR1 (0 point) and TR2 (2 points): No FNA or followup * TR3 (3 points): FNA if more than or equal to 2.5 cm in maximum dimension, follow up ultrasound in 1, 3 and 5 years if 1.5 to 2.4 cm in maximum dimension. * TR4 (4-6 points): FNA if more than or equal to 1.5 cm in maximum dimension, follow up ultrasound in 1, 2, 3 and 5 years if 1 to 1.4 cm in maximum dimension. * TR5 (more than or equal to 7 points): FNA if more than or equal to 1 cm in maximum dimension, follow up ultrasound every year for 5 years if 0.5 to 0.9 cm in maximum dimension. * TR3, TR4 or TR5 nodules that are below the size threshold for follow up receive no followup.
== END 2023-05-31 12:15 | disposition home or self-care (01) ==
LOC: HO.US 12:14
PROVIDERS: PCP Family Medicine; Visit Provider Internal Medicine Endocrinology, Diabetes & Metabolism
DX: E04.2 Nontoxic multinodular goiter (principal)
CPT/HCPCS: 76536

== ENCOUNTER 2023-06-12 13:23 | Outpatient (REF) | payer MEDICARE, SELFPAY ==
[2023-06-12 15:03] LABS: Free T4 (Free Thyroxine) 0.99 ng/dL (0.71-1.85)
== END 2023-06-12 13:24 | disposition home or self-care (01) ==
LOC: HO.LAB 13:23
PROVIDERS: Visit Provider Internal Medicine Endocrinology, Diabetes & Metabolism
DX: E04.2 Nontoxic multinodular goiter (principal)
CPT/HCPCS: 36415; 84439; 84443

== ENCOUNTER 2023-06-14 13:51 | Outpatient (AMB) | payer MEDICARE, SELFPAY ==
--- NOTE | 2023-06-14 13:52 | MHC.OFFVIS ---
Intake Vital Signs 06/14/23 13:53 Height 5 ft 8 in Weight 219 lb 12.814 oz BMI 33.4 BP 140/88 H Blood Pressure Location Lt brachial Position Sitting Pulse 75 Pulse Source Pulse Oximeter Intake Visit Reasons: F/U NTMNG-confirmed Intake Note: Patient present today for NTMNG follow up visit. Last seen by Dr. Hamlin on 06/15/22. 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 Accompanied by: Self / Same As Patient Allergies pravastatin Allergy (Intermediate, Verified 06/14/23 13:58) muscle cramping amlodipine Adverse Reaction (Intermediate, Verified 06/14/23 13:58) swelling lisinopril Adverse Reaction (Intermediate, Verified 06/14/23 13:58) cough narcotics Allergy (Intermediate, Uncoded 05/05/23 09:32) Nausea and Vomiting Medication List - Last Reconciled 06/14/23 by Mao Gonzalez MD amoxicillin 500 mg PO TID ezetimibe 10 mg PO DAILY hydrochlorothiazide 50 mg PO DAILY hydromorphone (Dilaudid) 2 mg PO Q6H PRN ibuprofen 600 mg PO Q6H PRN metoprolol succinate ER 100 mg PO DAILY multivitamin 1 tab PO DAILY omeprazole 20 mg PO DAILY ropinirole 0.5 mg PO BEDTIME HPI HPI Comments History of Present Illness Details 72 YO F with PMHx of a Multinodular thyroid who is seen in F/U for the same. She was previously followed by Dr. Newsome. The patient last saw Dr. Hamlin Was initially diagnosed with multinodular thyroid many years ago. She underwent a prior FNA biopsy of 2 nodules 01/16/2019. 1. LMP 1.6 cm complex cyst - cytology nondiagnostic 2. RMP 2.4 cm nodule - cytology benign She had a repeat thyroid US 06/2022 which revealed no significant change of these nodules. She does mention occasional dysphagia, but denies any changes to her voice. She does report heat intolerance. Denies any palpitations, tremors, weight loss, frequent bowel movements. Denies hair loss, cold intolerance and weight gain. Denies any history of head or neck irradiation. Denies any family history of thyroid cancer. Thyroid US: 06/08/2022 Right Thyroid Lobe: 4.4 x 2.4 x 2.0 cm, volume 11.1 mL. Previously 4.5 x 2.4 x 2.3 cm, volume 12.9 mL. Parenchyma: The gland echotexture is heterogeneous. Thyroid vascularity is increased. Left Thyroid Lobe: 4.6 x 1.9 x 1.5 cm, volume 6.8 mL. Previously 3.9 x 0.9 x 1.6 cm, volume 2.9 mL. Parenchyma: The gland echotexture is heterogeneous. Thyroid vascularity is normal. Isthmus: 0.4 cm in maximum AP dimension. Previously 0.4 cm. Estimated total number of nodules greater than or equal to 1 cm: 1. Pediatric Assistant nodules are described as follows: 1.? Location: Right mid. ?? ? Size: 2.3 x 1.3 x 2.2 cm, volume 3.4 mL. ?? ? Previously: 2.0 x 1.3 x 1.8 cm, volume 2.3 mL. ?? ? Nodule characteristics: ?? ? Composition: Solid/almost completely solid (2). ?? ? Echogenicity: Hyperechoic (1). ?? ? Shape: Not taller than wide (0). ?? ? Margins: Smooth (0). ?? ? Echogenic Foci: None (0). ? ACR TI-RADS total points: 3 Previous: 3 ?? ? ACR TI-RADS category: 3 Previous: 3 ? Significant change in size (>/= 20% in 2 dimensions and minimal increase of 2 mm or 50% or greater increase in volume): None ?? ? Change in features: None ?? ? Change in ACR TI-RADS risk category: No change 2.? Location: Right mid. ?? ? Size: 0.5 x 0.4 x 0.4 cm, volume 0.05 mL. ?? ? Previously: 0.4 x 0.3 x 0.5 cm, volume 0.03 mL. ?? ? Nodule characteristics: ?? ? Composition: Solid (2). ?? ? Echogenicity: Isoechoic (1). ?? ? Shape: Not taller than wide (0). ?? ? Margins: Smooth (0). ?? ? Echogenic Foci: None (0).? ACR TI-RADS total points: 3 Previous: 5 ?? ? ACR TI-RADS category: 3 Previous: 4 ? Significant change in size (>/= 20% in 2 dimensions and minimal increase of 2 mm or 50% or greater increase in volume): None ?? ? Change in features: None ?? ? Change in ACR TI-RADS risk category: Minimal. 3.? Location: Left superior. ?? ? Size: 0.3 x 0.2 x 0.3 cm, volume 0.01 mL. ?? ? Previously: 0.4 x 0.3 x 0.3 cm, volume 0.02 mL. ?? ? Nodule characteristics: ?? ? Composition: Solid (2). ?? ? Echogenicity: Hyperechoic (1). ?? ? Shape: Not taller than wide (0). ?? ? Margins: Smooth (0). ?? ? Echogenic Foci: None (0). ? ACR TI-RADS total points: 3 Previous: 4 ?? ? ACR TI-RADS category: 3 Previous: 4 ? Significant change in size (>/= 20% in 2 dimensions and minimal increase of 2 mm or 50% or greater increase in volume): None ?? ? Change in features: None ?? ? Change in ACR TI-RADS risk category: No change 4.? Location: Left mid. ?? ? Size: 0.5 x 0.3 x 0.3 cm, volume 0.02 mL. ?? ? Previously: 0.4 x 0.3 x 0.4 cm, volume 0.02 mL. ?? ? Nodule characteristics: ?? ? Composition: Solid (2). ?? ? Echogenicity: Isoechoic (1). ?? ? Shape: Not taller than wide (0). ?? ? Margins: Smooth (0). ?? ? Echogenic Foci: None (0).? ACR TI-RADS total points: 3 Previous: 3 ?? ? ACR TI-RADS category: 3 Previous: 3 ? Significant change in size (>/= 20% in 2 dimensions and minimal increase of 2 mm or 50% or greater increase in volume): None ?? ? Change in features: None ?? ? Change in ACR TI-RADS risk category: No change 5.? Location: Left inferior. ?? ? Size: 0.2 x 0.3 x 0.3 cm, volume 0.01 mL. ?? ? Previously: Not documented on the previous study. ?? ? Nodule characteristics: ?? ? Composition: Mixed cystic and solid (1). ?? ? Echogenicity: Cannot be determined (1). ?? ? Shape: Not taller than wide (0). ?? ? Margins: Smooth (0). ?? ? Echogenic Foci: Comet-tail artifacts (0).? ACR TI-RADS total points: 2 ?? ? ACR TI-RADS category: 2 NODES: No lymphadenopathy is seen in the tissue surrounding the thyroid gland. Labs: Laboratory Tests 06/08/22 11:12 TSH 1.53 Free T4 0.95 No obstructive sx PFSH Medical History Multinodular thyroid GERD (gastroesophageal reflux disease) COVID-19 vaccine series completed Depression Anxiety Hyperlipidemia Hypertension Right inguinal hernia Surgical History H/O vein stripping (06/13/21) History of appendectomy History of hernia surgery History of lumpectomy of left breast History of partial hysterectomy History of shoulder replacement History of tonsillectomy Hx of biopsy Hx of colonoscopy Family History Father Congestive heart failure Mother No problems noted. Social History Alcohol intake: never Patient Tobacco Use Status: Former Tobacco user Physical Exam Const Other: Thyroid gland is normal size weighs by 15 g. There are no nodules palpated Assessment & Plan Assessment & Plan (1) Multinodular thyroid: Code(s): E04.2 - Nontoxic multinodular goiter Plan: 72-year-old white female with a history of multinodular goiter She underwent a prior FNA biopsy of 2 nodules 01/16/2019. 1. LMP 1.6 cm complex cyst - cytology nondiagnostic 2. RMP 2.4 cm nodule - cytology benign. Recent thyroid ultrasound showed stability in the size of the nodule. Patient is clinically biochemically euthyroid. At this point, patient can follow up with the primary care provider who should order a thyroid ultrasound about 1-2 years time. If this any change in the size or characteristics of the nodule, the patient referred back to endocrine Coding Level of Care Code Est Pt Level 3 (31314) Diagnoses Multinodular thyroid E04.2
[2023-06-14 13:53] VITALS: BP 140/88; PULSE 75; BMI 33.4
== END 2023-06-14 14:56 | disposition home or self-care (01) ==
PROVIDERS: PCP Family Medicine; Visit Provider Internal Medicine Endocrinology, Diabetes & Metabolism
DX: E04.2 Nontoxic multinodular goiter (principal)
CPT/HCPCS: 99213

== ENCOUNTER → 2023-06-14 13:51 | Outpatient (BNVA) | payer MEDICARE, SELFPAY | PROVIDERS: Visit Provider Internal Medicine Endocrinology, Diabetes & Metabolism | DX: E04.2 Nontoxic multinodular goiter (principal) | CPT/HCPCS: 99212 ==

== ENCOUNTER 2023-09-26 08:42 | Outpatient (REF) | payer MEDICARE, SELFPAY ==
--- NOTE | ~2023-09-26 | XR_ITS ---
EXAMINATION: XR SHOULDER, RIGHT CLINICAL INFORMATION: Pain in right shoulder. COMPARISON: None available. TECHNIQUE: 2 views of the right shoulder. FINDINGS: Right total shoulder prosthesis. Hardware appears intact. Bones are diffusely demineralized. Moderate degenerative changes in the acromioclavicular joint. Possible parenchymal disease in the partially imaged right lung base, difficult to evaluate and dedicated views of the chest should be considered for further evaluation. XR/XR shoulder RT min 2V IMPRESSION: 1. Right total shoulder prosthesis. Hardware appears intact. 2. Moderate degenerative changes in the acromioclavicular joint. 3. Possible parenchymal disease in the partially imaged right lung base difficult to evaluate and dedicated views of the chest should be considered for further evaluation.
== END 2023-09-26 08:43 | disposition home or self-care (01) ==
LOC: HO.HOSX 08:42
PROVIDERS: Visit Provider Orthopaedic Surgery
DX: M25.512 Pain in left shoulder (principal); M25.511 Pain in right shoulder; M54.2 Cervicalgia
CPT/HCPCS: 73030; 99202

== ENCOUNTER 2023-09-26 08:51 | Outpatient (AMB) | payer MEDICARE, SELFPAY ==
[2023-09-26 09:01] VITALS: BMI 33.3
--- NOTE | 2023-09-26 09:01 | A.OFFVIS_ITS ---
Vital Signs 09/26/23 09:01 Height 5 ft 8 in Weight 219 lb BMI 33.3 Intake Visit Reasons: NewPt- Left shoulder pain, Neck pain Intake Note: Rachel is a 73 year old Right hand dominant female who presents as a new patient with complaints of progressively worsening neck pain which radiates into her right arm as well as weakness in her right shoulder. The patient did undergo right total shoulder arthroplasty surgery by Dr. Cheema approximately 5 years ago. She denies any fevers or chills. The patient reports that her neck pain does radiate down to her right hand. She has failed the last 6 weeks of conservative treatment. She has tried Tylenol and ibuprofen which gave her only mild relief. She has also done physical therapy which aggravated her pain. Allergies pravastatin Allergy (Intermediate, Verified 09/26/23 09:07) muscle cramping amlodipine Adverse Reaction (Intermediate, Verified 09/26/23 09:07) swelling lisinopril Adverse Reaction (Intermediate, Verified 09/26/23 09:07) cough narcotics Allergy (Intermediate, Uncoded 09/26/23 09:07) Nausea and Vomiting Medication List - Last Reconciled 09/26/23 by Shakir Espana MD amoxicillin 500 mg PO TID ezetimibe 10 mg PO DAILY hydrochlorothiazide 50 mg PO DAILY hydromorphone (Dilaudid) 2 mg PO Q6H PRN ibuprofen 600 mg PO Q6H PRN metoprolol succinate ER 100 mg PO DAILY multivitamin 1 tab PO DAILY omeprazole 20 mg PO DAILY ropinirole 0.5 mg PO BEDTIME PFSH Medical History Multinodular thyroid GERD (gastroesophageal reflux disease) COVID-19 vaccine series completed Depression Anxiety Hyperlipidemia Hypertension Right inguinal hernia Surgical History H/O vein stripping (06/13/21) Hx of biopsy Hx of colonoscopy History of appendectomy History of lumpectomy of left breast History of partial hysterectomy History of hernia surgery History of tonsillectomy History of shoulder replacement Family History Father Congestive heart failure Mother No problems noted. Social History (Updated 09/26/23 @ 09:07 by Yen Hill, [employer] SECRETARY) Alcohol intake: never Patient Tobacco Use Status: Former Tobacco user Current occupational status: employed Current occupation: cafe , Right hand dominant Physical Exam Vital Signs: BMI result Body Mass Index 33.3 Const Other: Well-nourished well-developed very friendly female awake alert and oriented x3 in no acute distress Neck Other: Cervical spine examination shows right-sided paraspinal muscle tenderness, pain with range of motion, positive Spurling's test, 4/5 strength with testing of her right biceps and wrist flexors when compared to 5/5 strength on her left side Extrem Other: Right shoulder examination shows that the surgical incision is well healed, no erythema, 4/5 strength with supraspinatus testing, no instability Results Reviewed Results Reviewed: X-rays of the patient's right shoulder taken today show a reverse total shoulder arthroplasty in good position with no signs of loosening, no acute bony abnormalities Assessment & Plan Assessment & Plan (1) Left shoulder pain: Code(s): M25.512 - Pain in left shoulder Category: Medical (2) Neck pain: Code(s): M54.2 - Cervicalgia Category: Medical Plan Ms. Graham presents with progressively worsening cervical spine pain which radiates into her right arm as well as associated right upper extremity weakness possibly due to cervical stenosis or a disc herniation. Thus, I will send her for an MRI of her cervical spine for further evaluation. I will see her back once the MRI is completed to discuss the findings and treatment options. Feel free to call me at any time should questions regarding her orthopedic management arise. Thank you very much for asking me to see this very friendly patient. I spent 21 minutes in reviewing the patient's records and imaging studies, kareen peterson the patient and documenting in the medical record. Orders: Orders MR cervical spine wo con 09/26/23 M54.2 - Cervicalgia Medications: New meloxicam 15 mg PO DAILY 90 tabs 3RF 3 months Coding Level of Care Code New Pt Level 3 (88659) Diagnoses Left shoulder pain M25.512 Neck pain M54.2
== END 2023-09-26 09:28 | disposition home or self-care (01) ==
PROVIDERS: PCP Family Medicine; Visit Provider Orthopaedic Surgery
DX: M25.512 Pain in left shoulder (principal); M54.2 Cervicalgia
CPT/HCPCS: 99204

== ENCOUNTER 2023-10-09 10:08 | Outpatient (AMB) | payer MEDICARE, SELFPAY ==
--- NOTE | 2023-10-09 10:12 | MHC.OFFVIS ---
Intake Visit Reasons: Neck pain Intake Note: Rachel is a 73 year old Right hand dominant female who presents with complaints of progressively worsening neck pain which radiates into her right arm as well as weakness in her right shoulder. The patient did undergo right total shoulder arthroplasty surgery by Dr. Cheema approximately 5 years ago. She denies any fevers or chills. The patient reports that her neck pain does radiate down to her right hand. She has failed the last 6 weeks of conservative treatment. She has tried Tylenol and ibuprofen which gave her only mild relief. She has also done physical therapy which aggravated her pain. The patient has tried meloxicam and Tylenol which gave her minimal relief. Allergies pravastatin Allergy (Intermediate, Verified 10/09/23 10:13) muscle cramping amlodipine Adverse Reaction (Intermediate, Verified 10/09/23 10:13) swelling lisinopril Adverse Reaction (Intermediate, Verified 10/09/23 10:13) cough narcotics Allergy (Intermediate, Uncoded 10/09/23 10:13) Nausea and Vomiting Medication List - Last Reconciled 10/09/23 by Shakir Espana MD ezetimibe 10 mg PO DAILY hydrochlorothiazide 50 mg PO DAILY ibuprofen 600 mg PO Q6H PRN meloxicam 15 mg PO DAILY 3 months metoprolol succinate ER 100 mg PO DAILY multivitamin 1 tab PO DAILY omeprazole 20 mg PO DAILY ropinirole 0.5 mg PO BEDTIME PFSH Medical History Multinodular thyroid GERD (gastroesophageal reflux disease) COVID-19 vaccine series completed Depression Anxiety Hyperlipidemia Hypertension Right inguinal hernia Surgical History H/O vein stripping (06/13/21) Hx of biopsy Hx of colonoscopy History of appendectomy History of lumpectomy of left breast History of partial hysterectomy History of hernia surgery History of tonsillectomy History of shoulder replacement Family History Father Congestive heart failure Mother No problems noted. Social History Alcohol intake: never Patient Tobacco Use Status: Former Tobacco user Current occupational status: employed Current occupation: cafe , Right hand dominant Physical Exam Const Other: Well-nourished well-developed very friendly female awake alert and oriented x3 in no acute distress Neck Other: Cervical spine examination shows pain with range of motion, right-sided paraspinal muscle tenderness, positive Spurling's test, 4/5 strength with testing of her right biceps and wrist extensors when compared to 5/5 strength on her left side Assessment & Plan Assessment & Plan (1) Neck pain: Code(s): M54.2 - Cervicalgia Category: Medical Plan Ms. Graham presents with progressively worsening neck pain which radiates into her right arm as well as associated right arm weakness possibly due to a disc herniation or cervical stenosis. Thus, I will send her for an MRI of her cervical spine for further evaluation. I did give her a prescription for a Medrol Dosepak to help with her symptoms in the meantime. I will see her back once her MRI is completed. She will call me prior to that time should her symptoms worsen in any way. Feel free to call me at any time should questions regarding her orthopedic management arise. I spent 22 minutes in reviewing the patient's records and imaging studies, seeing the patient and documenting in the medical record. Orders: Orders MR cervical spine wo con Today M54.2 - Cervicalgia Medications: New methylprednisolone (Medrol (Khris)) PO PER PKG DIR 21 ea 0RF Coding Level of Care Code Est Pt Level 3 (47672) Diagnoses Neck pain M54.2
== END 2023-10-09 10:26 | disposition home or self-care (01) ==
PROVIDERS: PCP Family Medicine; Visit Provider Orthopaedic Surgery
DX: M54.2 Cervicalgia (principal)
CPT/HCPCS: 99214

== ENCOUNTER → 2023-10-09 10:08 | Outpatient (BNVA) | payer MEDICARE, SELFPAY | PROVIDERS: PCP Family Medicine; Visit Provider Orthopaedic Surgery | DX: M54.2 Cervicalgia (principal) | CPT/HCPCS: 99212 ==

== ENCOUNTER 2023-10-12 14:04 | Outpatient (REF) | payer MEDICARE, SELFPAY ==
--- NOTE | ~2023-10-12 | MR_ITS ---
EXAMINATION: MR CERVICAL SPINE WITHOUT CONTRAST CLINICAL INFORMATION: Neck pain. Right arm pain. COMPARISON: Neck CT dated 06/23/2022. TECHNIQUE: Multiplanar, multisequential imaging of the cervical spine was performed without contrast. FINDINGS: VERTEBRAL BODIES AND PARASPINAL SOFT TISSUES: The marrow signal is within normal limits. There is mild endplate edema and moderate disc space narrowing with a slight retrosubluxation at the C5-C6 level. Mild anterolisthesis and loss of disc height evident at the C6-C7 level. There is a minimal anterior subluxation at the T1-T2 level with namoxfqw-hr-laxrjv left-sided hypertrophic facet arthropathy. The paraspinal soft tissues appear normal. The vertebral artery flow-voids are maintained. There is a large 2 x 2 cm cystic lesion along the tongue base, slightly to the right of midline, also visible on prior neck CT imaging. The imaged portions of the lungs are grossly clear. CERVICOMEDULLARY JUNCTION AND VISUALIZED POSTERIOR FOSSA: The craniovertebral junction and imaged portions of the brain parenchyma demonstrate no acute abnormality. 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 No cord signal abnormality or syrinx is seen. SPINAL LEVELS: C2-C3: No disc pathology. Moderate left-sided hypertrophic facet arthropathy. No central canal stenosis or foraminal narrowing. C3-C4: Hypertrophic facet degeneration, worse on the left side. No central canal stenosis. Moderate bilateral foraminal narrowing. No focal disc protrusion. C4-C5: No disc abnormality. Bilateral facet arthropathy with sgch-zf-ergmwhro foraminal encroachment, worse on the right side. No central canal stenosis. C5-C6: Shallow disc-osteophyte complex and thickening of the ligamentum flavum resulting in very mild narrowing of the central canal and severe foraminal narrowing, worse on the right side. C6-C7: Severe disc space narrowing and mild disc bulge with uncovertebral joint spurring. Bylq-nc-mnydhhcw foraminal narrowing, more so on the right side. C7-T1: No disc pathology. No central canal stenosis or foraminal narrowing. Right-sided hypertrophic facet degeneration. MR/MR cervical spine wo con IMPRESSION: Multilevel hypertrophic facet arthropathy. No focal disc protrusion or significant central canal stenosis. Disc-osteophyte complex and very mild narrowing of the central canal with severe foraminal narrowing at the C5-C6 level. Moderate bilateral foraminal narrowing at the C3-C4 level. No cord signal abnormality or syrinx. Indeterminate 2 x 2 cm cystic lesion along the tongue base at the level of the vallecula which may represent a thyroglossal duct cyst. This finding could alternatively represent a large submucosal retention cyst.
== END 2023-10-12 14:05 | disposition home or self-care (01) ==
LOC: HO.MRI 14:04
PROVIDERS: PCP Family Medicine; Visit Provider Orthopaedic Surgery
DX: M54.2 Cervicalgia (principal)
CPT/HCPCS: 72141

== ENCOUNTER 2023-10-29 10:12 | Outpatient (AMB) | payer MEDICARE, SELFPAY ==
--- NOTE | 2023-10-29 10:44 | HO.SPINEOV ---
Intake Visit Reasons: severe cervical stenosis Intake Note: Ms. 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 She is a very nice 73-year-old female who has had multiyear history of posterior occipital neck pain. The pain generally can come when she is flexing her neck or holding her head in a particular position. If she coughs it will feel like her head is going to explode in the back. She thought at 1 point she might be having an aneurysm because of the intensity of the pain. She has no pain, tingling or numbness going down her arms. No myelopathic symptoms. She did try physical therapy, but got no relief from that. She takes Advil as part of her daily medication regimen to try to help with the pain. She has had no cortisone injections yet. She comes today see us with a cervical MRI showing foraminal stenosis at C5-6, amongst other degenerative and arthritic changes. PMH: She is reasonably healthy, history of hypertension, cholesterol, heartburn, lumpectomy of the left breast, hysterectomy, shoulder replacement on the right, tonsillectomy. She has followed for a multinodular thyroid. Social hx: She does not smoke, drink use any recreational drugs Medications: Metoprolol, hydrochlorothiazide, ibuprofen, meloxicam, multivitamin, omeprazole, allopurinol, Zetia Allergies: None Physical exam: She is awake alert oriented no acute distress, she does have tenderness in the occipital cervical junction bilaterally to palpation. Otherwise strength reflexes and gait are all normal. Imaging review: She has some mild disc degeneration, primarily at C5-6 on the right where there is some foraminal narrowing. No significant central canal stenosis. There is also some cchy-gi-vldyjmdm facet arthropathy higher up in the cervical spine. Impression: 73-year-old female presents to the office today for evaluation of a chronic neck pain which is in the occipital cervical junction, particularly worse if she coughs or if she flexes her head for an extended period of time. She has no radicular symptoms down the arms. From the standpoint of surgical options, why think what she is dealing with here is mostly arthritis and muscular tension in the higher portions of the neck and not anything that is discogenic in nature. I do not think surgery would help her. I will refer her to Dr. Man to see if there any injections he can help her with. I did briefly review her case with him, he has thinking maybe an occipital nerve block, versus a facet block. He is going to meet with her in the office and have a more thorough discussion. Thank you for allowing us to care for your patient. The total time spent with this visit with this patient was 45 minutes reviewing history, physical exam, cervical MRI imaging review, and implementation of treatment plan or further diagnostic testing Ruben Kay MD,PhD [facility] Orders: Referrals Pain Management Referral M54.2 - Cervicalgia Coding Level of Care Code New Pt Level 4 (33809) Diagnoses Neck pain M54.2
== END 2023-10-29 11:50 | disposition home or self-care (01) ==
PROVIDERS: PCP Family Medicine; Referring Provider Orthopaedic Surgery; Visit Provider Physician Assistant
DX: M54.2 Cervicalgia (principal)
CPT/HCPCS: 99204

== ENCOUNTER → 2023-10-29 10:12 | Outpatient (BNVA) | payer MEDICARE, SELFPAY | PROVIDERS: PCP Family Medicine; Visit Provider Physician Assistant | DX: M48.02 Spinal stenosis, cervical region (principal) | CPT/HCPCS: 99202 ==

== ENCOUNTER 2023-11-14 07:52 | Outpatient (AMB) | payer MEDICARE, SELFPAY ==
--- NOTE | 2023-11-14 08:00 | MHC.OFFVIS ---
Vital Signs 11/14/23 08:04 Height 5 ft 8 in Weight 220 lb BMI 33.4 BP 144/70 H Blood Pressure Location Lt brachial Position Sitting Respiration 14 Pulse 623 H Pulse Source Pulse Oximeter Pulse Oximetry (%) 94 Oxygen Delivery Method Room Air Intake Visit Reasons: ONB/TPI Allergies pravastatin Allergy (Intermediate, Verified 11/14/23 08:05) muscle cramping amlodipine Adverse Reaction (Intermediate, Verified 11/14/23 08:05) swelling lisinopril Adverse Reaction (Intermediate, Verified 11/14/23 08:05) cough narcotics Allergy (Intermediate, Uncoded 11/14/23 08:05) Nausea and Vomiting Medication List - Last Reconciled 11/14/23 by Helen Mansfield, MANISHA ezetimibe 10 mg PO DAILY hydrochlorothiazide 50 mg PO DAILY ibuprofen 600 mg PO Q6H PRN metoprolol succinate ER 100 mg PO DAILY multivitamin 1 tab PO DAILY omeprazole 20 mg PO DAILY ropinirole 0.5 mg PO BEDTIME HPI HPI ONB/TPI: Details: 73-year-old female who presents to the office for occipital nerve block/trigger point injection evaluation. She complains of worsening posterior occipital neck pain for many years. She gets pain when she flexes her neck or holds her head in a particular position. The pain radiates down into her both arms along with weakness in the right shoulder. She rates the pain as 10 on a scale of 1 to 10, and it happens 6 times a week, up to 3 times a day. She describes the pain as sharp shooting and it feels like having an aneurysm. She underwent a total right shoulder arthroplasty about 5 years ago. She has failed 6 weeks of conservative treatment in the past. She has tried Advil, Tylenol and ibuprofen only with mild relief. She previously did physical therapy, but it has aggravated the pain. She denies any myelopathic symptoms. Her previous MRI shows foraminal stenosis at C5-C6, amongst other degenerative and arthritic changes. [facility] Medical History Multinodular thyroid GERD (gastroesophageal reflux disease) COVID-19 vaccine series completed Depression Anxiety Hyperlipidemia Hypertension Right inguinal hernia Surgical History H/O vein stripping (06/13/21) Hx of biopsy Hx of colonoscopy History of appendectomy History of lumpectomy of left breast History of partial hysterectomy History of hernia surgery History of tonsillectomy History of shoulder replacement Family History Father Congestive heart failure Mother No problems noted. Social History Alcohol intake: never Patient Tobacco Use Status: Former Tobacco user Current occupational status: employed Current occupation: cafe , Right hand dominant Review of Systems Const All systems reviewed & are unremarkable except as noted in HPI and below Physical Exam Vital Signs: Last Vital Signs Pulse 623 H 11/14/23 08:04 Resp 14 11/14/23 08:04 BP 144/70 H 11/14/23 08:04 Pulse Ox 94 11/14/23 08:04 Oxygen Delivery Method Room Air 11/14/23 08:04 BMI result Body Mass Index 33.4 General: Appears afebrile. Alert and oriented. Mood and affect appropriate. Follows and participates in conversation appropriately. Respiratory effort is unlabored. Able to transition from sit to stand unassisted. Pain is primarily in the axial neck in the occipital region, worse with cervical range of motion. There is tenderness to palpation overlying bilateral occipital area. Office Procedures Nerve Block Details: Greater Occipital Nerve Block, Bilateral Physical exam was used to isolate the location of the targeted nerves. These injection sites were prepped with alcohol. Using sterile technique, a 27 gauge 1.5 inch needle was introduced into each each overlying nerve. A total of 4 mL 0.5% ropivacaine was injected around the right greater occipital nerves in a fan-like motion. This was then repeated on the left side. The patient tolerated the procedure well and no complications were encountered. Following the procedure the patient's vital signs were stable. The patient was discharged home in good condition with post-procedural instructions. Time Out: Immediately prior to the procedure, the following was verbally confirmed that there is a signed consent form and that the correct patient, planned procedure, site and side are consistent with documentation and that necessary equipment and/or blood products are available prior to the start of the case. Complications: none EBL: <5 cc CPT: 28976-Apygiiw Occipital (Bilateral) Procedure code (CPT) selection complete Results Reviewed Results Reviewed: 10/12/23-MR CERVICAL SPINE WITHOUT CONTRAST FINDINGS: VERTEBRAL BODIES AND PARASPINAL SOFT TISSUES: The marrow signal is within normal limits. There is mild endplate edema and moderate disc space narrowing with a slight retrosubluxation at the C5-C6 level. Mild anterolisthesis and loss of disc height evident at the C6-C7 level. There is a minimal anterior subluxation at the T1-T2 level with hcjflvcw-cv-fdyuyx left-sided hypertrophic facet arthropathy. The paraspinal soft tissues appear normal. The vertebral artery flow-voids are maintained. There is a large 2 x 2 cm cystic lesion along the tongue base, slightly to the right of midline, also visible on prior neck CT imaging. The imaged portions of the lungs are grossly clear. CERVICOMEDULLARY JUNCTION AND VISUALIZED POSTERIOR FOSSA: The craniovertebral junction and imaged portions of the brain parenchyma demonstrate no acute abnormality. 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 No cord signal abnormality or syrinx is seen. SPINAL LEVELS: C2-C3: No disc pathology. Moderate left-sided hypertrophic facet arthropathy. No central canal stenosis or foraminal narrowing. C3-C4: Hypertrophic facet degeneration, worse on the left side. No central canal stenosis. Moderate bilateral foraminal narrowing. No focal disc protrusion. C4-C5: No disc abnormality. Bilateral facet arthropathy with ajun-tp-zmqhngtr foraminal encroachment, worse on the right side. No central canal stenosis. C5-C6: Shallow disc-osteophyte complex and thickening of the ligamentum flavum resulting in very mild narrowing of the central canal and severe foraminal narrowing, worse on the right side. C6-C7: Severe disc space narrowing and mild disc bulge with uncovertebral joint spurring. Mobg-aw-vdrqwkxr foraminal narrowing, more so on the right side. C7-T1: No disc pathology. No central canal stenosis or foraminal narrowing. Right-sided hypertrophic facet degeneration. IMPRESSION: Multilevel hypertrophic facet arthropathy. No focal disc protrusion or significant central canal stenosis. Disc-osteophyte complex and very mild narrowing of the central canal with severe foraminal narrowing at the C5-C6 level. Moderate bilateral foraminal narrowing at the C3-C4 level. No cord signal abnormality or syrinx. Indeterminate 2 x 2 cm cystic lesion along the tongue base at the level of the vallecula which may represent a thyroglossal duct cyst. This finding could alternatively represent a large submucosal retention cyst. Assessment & Plan Assessment & Plan (1) Occipital neuralgia: Code(s): M54.81 - Occipital neuralgia Category: Medical (2) Cervical spondylosis: Code(s): M47.812 - Spondylosis without myelopathy or radiculopathy, cervical region Category: Medical Plan 73-year-old female with occipital region pain on both sides likely secondary to cervical occipital neuralgia secondary to high cervical spine spondylosis. She is status post diagnostic bilateral occipital nerve blocks. We will see how she responds to this intervention. If this is not significantly helpful, we will consider undertaking a trial of diagnostic cervical medial branch blocks. The JENA questionnaire was administered to the patient in the office today and she scored 48 on the questionnaire. Vas score was 10/10 on average. Scribed for Dr. Man by Alissa Mobley, medical assistant secretary, on 11/14/2023. I, Dr. Man, have personally reviewed and agree with the information entered by the scribe. Coding Level of Care Code New Pt Level 4 (77273) Diagnoses Occipital neuralgia M54.81 Cervical spondylosis M47.812 CPT Codes Nerve Block - CPT: 11287-Rfcyxgy Occipital ([id number])
[2023-11-14 08:04] VITALS: BP 144/70; PULSE 623; RESP 14; O2SAT 94; BMI 33.4
== END 2023-11-14 08:41 | disposition home or self-care (01) ==
PROVIDERS: PCP Family Medicine; Visit Provider Internal Medicine
DX: M47.812 Spondylosis without myelopathy or radiculopathy, cervical region (principal); M54.81 Occipital neuralgia
CPT/HCPCS: 64405; 99204

== ENCOUNTER → 2023-11-14 07:52 | Outpatient (BNVA) | payer MEDICARE, SELFPAY | PROVIDERS: PCP Family Medicine; Visit Provider Internal Medicine | DX: M54.81 Occipital neuralgia (principal); M47.812 Spondylosis without myelopathy or radiculopathy, cervical region | CPT/HCPCS: 64405; 99202; J2795 ==

== ENCOUNTER 2024-01-28 14:18 | Outpatient (REF) | payer MEDICARE, SELFPAY ==
--- NOTE | ~2024-01-28 | US_ITS ---
EXAMINATION: US THYROID CLINICAL INFORMATION: Nontoxic multinodular goiter. COMPARISON: Thyroid ultrasound 05/31/2023 and 06/08/2022. CT soft tissue neck 06/23/2022. Ultrasound-guided thyroid biopsy 01/16/2019. TECHNIQUE: Linear transducer grayscale and color Doppler examination with attention to the region of the thyroid. FINDINGS: SIZE: Measurements of the thyroid lobes and nodules are given in sagittal, anteroposterior and transverse dimensions respectively. Right Thyroid Lobe: 4.2 x 2.5 x 2.2 cm, volume 11.7 mL. Previously 4.4 x 2.4 x 2.5 cm, volume 13.8 mL. Parenchyma: The gland echotexture is homogeneous. Thyroid vascularity is increased. Left Thyroid Lobe: 3.9 x 1.4 x 1.1 cm, volume 3.4 mL. Previously 4.2 x 1.5 x 1.4 cm, volume 4.6 mL. Parenchyma: The gland echotexture is homogeneous. Thyroid vascularity is normal. Isthmus: 0.4 cm in maximum AP dimension. Previously 0.4 cm. Estimated total number of nodules greater than or equal to 1 cm: 1. Community Development Manager nodules are described as follows: 1. Location: Right mid pole. Size: 2.5 x 1.6 x 2.1 cm, volume 4.2 mL. Previously: 2.4 x 1.6 x 2.2 cm, volume 4.4 mL. Nodule characteristics: Composition: Solid/almost completely solid (2). Echogenicity: Isoechoic (1). Shape: Not taller than wide (0). Margins: Smooth (0). Echogenic Foci: None (0). ACR TI-RADS total points: 3 Previous: 3 ACR TI-RADS category: 3 Previous: 3 Significant change in size (>/= 20% in 2 dimensions and minimal increase of 2 mm or 50% or greater increase in volume): No Change in features: No Change in ACR TI-RADS risk category: No 2. Location: Left upper/mid pole. Size: 0.4 x 0.3 x 0.4 cm, volume 0.02 mL. Previously: 0.4 x 0.3 x 0.4 cm, volume 0.02 mL. Nodule characteristics: Composition: Solid/almost completely solid (2). Echogenicity: Hypoechoic (2). Shape: Not taller than wide (0). Margins: Ill-defined (0). Echogenic Foci: None (0). ACR TI-RADS total points: 4 Previous: 0 ACR TI-RADS category: 4 Previous: 1 Significant change in size (>/= 20% in 2 dimensions and minimal increase of 2 mm or 50% or greater increase in volume): No Change in features: Yes Change in ACR TI-RADS risk category: Yes NODES: No lymphadenopathy is seen in the tissue surrounding the thyroid gland. US/US soft tiss head and/or neck IMPRESSION: FNAs recommended of right midpole nodule if not previously performed. ACR TI-RADS RECOMMENDATION REFERENCE: Ultrasound-guided fine-needle aspiration, follow up ultrasound, no further followup. * TR1 (0 point) and TR2 (2 points): No FNA or followup * TR3 (3 points): FNA if more than or equal to 2.5 cm in maximum dimension, follow up ultrasound in 1, 3 and 5 years if 1.5 to 2.4 cm in maximum dimension. * TR4 (4-6 points): FNA if more than or equal to 1.5 cm in maximum dimension, follow up ultrasound in 1, 2, 3 and 5 years if 1 to 1.4 cm in maximum dimension. * TR5 (more than or equal to 7 points): FNA if more than or equal to 1 cm in maximum dimension, follow up ultrasound every year for 5 years if 0.5 to 0.9 cm in maximum dimension. * TR3, TR4 or TR5 nodules that are below the size threshold for follow up receive no followup. Electronically signed by: Vlad Landrum MD 01/30/2024 08:15 AM EDT
== END 2024-01-28 14:19 | disposition home or self-care (01) ==
LOC: HO.US 14:18
PROVIDERS: PCP Family Medicine; Visit Provider Family Medicine
DX: E04.9 Nontoxic goiter, unspecified (principal)
CPT/HCPCS: 76536

== ENCOUNTER 2024-02-06 18:12 | Outpatient (REF) | payer MEDICARE, SELFPAY ==
--- NOTE | ~2024-02-06 | MR_ITS ---
EXAMINATION: MR THORACIC SPINE WITHOUT CONTRAST CLINICAL INFORMATION: Pain. COMPARISON: None available. TECHNIQUE: MRI of the thoracic spine was obtained using routine sequences without contrast. FINDINGS: Thoracic spinal alignment is anatomic in the sagittal projection. The vertebral bodies demonstrate preserved stature. Bone marrow signal intensity is within normal limits. There is no bone marrow edema. There is mild narrowing of several adjacent upper thoracic spine intervertebral discs. There is no spinal canal stenosis. No foraminal stenosis. The paraspinal soft tissue is normal in appearance. The visualized spinal cord is normal in caliber and signal intensity. The visualized aorta is normal in caliber. The visualized lungs are clear. Visualized retroperitoneal structures are normal in appearance. MR/MR thoracic spine wo con IMPRESSION: Spinal alignment is anatomic. There is no spinal canal stenosis. No foraminal stenosis. The spinal cord is normal in caliber and signal intensity. Electronically signed by: Luis A Fonseca DO 03/26/2024 02:17 PM EST
--- NOTE | ~2024-02-06 | MR_ITS ---
EXAMINATION: MR LUMBAR SPINE WITHOUT CONTRAST CLINICAL INFORMATION: Low back pain. COMPARISON: None available. TECHNIQUE: MRI of the lumbar spine was obtained using routine sequences without contrast. FINDINGS: Lumbar spinal alignment is anatomic in the sagittal projection. The vertebral bodies demonstrate preserved stature. Bone marrow signal intensity is within normal limits. Intervertebral discs demonstrate preserved stature. The visualized spinal cord, conus medullaris, and cauda equina nerve roots are normal in appearance. The conus terminates at L1. The paraspinal soft tissue is normal in appearance. Visualized retroperitoneal structures are unremarkable. The visualized aorta is normal in caliber. Evaluation of the individual disc space levels is as follows: L1-2: There is a shallow circumferential disc bulge which flattens the ventral thecal sac. There is no spinal canal stenosis. No foraminal stenosis. L2-3: There is a shallow right subarticular zone disc protrusion superimposed on a circumferential disc bulge. There is narrowing of the right subarticular recess. There does not appear to be nerve root impingement, however. No spinal canal stenosis. No foraminal stenosis. L3-4: There is a shallow circumferential disc bulge which is slightly eccentric towards the right side. There is mild facet arthropathy. No spinal canal stenosis. No foraminal stenosis. L4-5: No significant disc herniation. There is mild facet arthropathy. No spinal canal stenosis. No foraminal stenosis. L5-S1: There is a right subarticular zone/foraminal disc herniation. There is mild facet arthropathy. The right subarticular recess is narrowed. No spinal canal stenosis. The right neural foramen is moderately narrowed. There does not appear to be nerve root impingement, however. The left neural foramen is widely patent. MR/MR lumbar spine wo con IMPRESSION: Mild multilevel spondylosis as described. There is no spinal canal stenosis at any level. The right neural foramen at L5-S1 is moderately narrowed. There does not appear to be nerve root impingement, however. Remaining neural foramen remain widely patent. Electronically signed by: Luis A Fonseca DO 03/26/2024 02:27 PM EST
== END 2024-02-06 18:13 | disposition home or self-care (01) ==
LOC: HO.MRI 18:12
PROVIDERS: PCP Family Medicine; Visit Provider Family Medicine
DX: M54.50 Low back pain, unspecified (principal)
CPT/HCPCS: 72146; 72148

== ENCOUNTER 2024-04-24 09:52 | Outpatient (AMB) | payer MEDICARE, SELFPAY ==
--- NOTE | 2024-04-24 09:54 | MHC.OFFVIS ---
Vital Signs 04/24/24 09:56 Height 5 ft 8 in Weight 230 lb 6.129 oz BMI 35.0 BP 110/84 Blood Pressure Location Lt brachial Position Sitting Pulse 58 Pulse Source Pulse Oximeter Intake Visit Reasons: Thyroid nodule Intake Note: Patient present today for thyroid nodule office visit. 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 Accompanied by: Self / Same As Patient Allergies pravastatin Allergy (Intermediate, Verified 04/24/24 10:00) muscle cramping amlodipine Adverse Reaction (Intermediate, Verified 04/24/24 10:00) swelling lisinopril Adverse Reaction (Intermediate, Verified 04/24/24 10:00) cough narcotics Allergy (Intermediate, Uncoded 04/24/24 10:00) Nausea and Vomiting Medication List - Last Reconciled 04/24/24 by Thea Diaz MD ezetimibe 10 mg PO DAILY hydrochlorothiazide 50 mg PO DAILY ibuprofen 600 mg PO Q6H PRN metoprolol succinate ER 100 mg PO DAILY multivitamin 1 tab PO DAILY omeprazole 20 mg PO DAILY ropinirole 0.5 mg PO BEDTIME HPI Comments Details: 73 YO F with PMHx of a Multinodular thyroid who is seen in F/U for the same. HPI from prior visit Was initially diagnosed with multinodular thyroid many years ago. She underwent a prior FNA biopsy of 2 nodules 01/16/2019. 1. LMP 1.6 cm complex cyst - cytology nondiagnostic 2. RMP 2.4 cm nodule - cytology benign She had a repeat thyroid US 06/2022 which revealed no significant change of these nodules. Interval history Most recent thyroid ultrasound 01/28/2024 showed stable size of the right 2.5 cm midpole nodule, does not show any left complex cyst anymore, shows a subcentimeter left superior/midpole 0.4 cm nodule TR 4 category. Both of these remained stable in size. She does mention occasional dysphagia, but denies any changes to her voice. Labs 04/11/2024 showed TSH mildly elevated at 4.89, normal free T4 of 1.09 She does report heat intolerance. Denies any palpitations, tremors, weight loss, frequent bowel movements. Denies hair loss, cold intolerance and weight gain. Denies any history of head or neck irradiation. Denies any family history of thyroid cancer. Mother has thyroid disease. Quit smoking 20 years ago. Physical exam General: sitting comfortably in no acute distress HEENT: normocephalic/atraumatic, Neck: supple, palpable 2 cm right-sided nodule, no dorsocervical or supraclavicular fat pads Cardiac: normal heart sounds Pulm: normal breath sounds B/L, no added breath sounds Abd: not distended, no tenderness Extremities: no edema, no signs of myxedema Laboratory Tests 06/08/22 06/12/23 11:12 13:42 TSH 1.53 2.00 Free T4 0.95 0.99 US THYROID 01/28/24 CLINICAL INFORMATION: Nontoxic multinodular goiter. COMPARISON: Thyroid ultrasound 05/31/2023 and 06/08/2022. CT soft tissue neck 06/23/2022. Ultrasound-guided thyroid biopsy 01/16/2019. TECHNIQUE: Linear transducer grayscale and color Doppler examination with attention to the region of the thyroid. FINDINGS: SIZE: Measurements of the thyroid lobes and nodules are given in sagittal, anteroposterior and transverse dimensions respectively. Right Thyroid Lobe: 4.2 x 2.5 x 2.2 cm, volume 11.7 mL. Previously 4.4 x 2.4 x 2.5 cm, volume 13.8 mL. Parenchyma: The gland echotexture is homogeneous. Thyroid vascularity is increased. Left Thyroid Lobe: 3.9 x 1.4 x 1.1 cm, volume 3.4 mL. Previously 4.2 x 1.5 x 1.4 cm, volume 4.6 mL. Parenchyma: The gland echotexture is homogeneous. Thyroid vascularity is normal. Isthmus: 0.4 cm in maximum AP dimension. Previously 0.4 cm. Estimated total number of nodules greater than or equal to 1 cm: 1. Agricultural Chemicals Inspector nodules are described as follows: 1. Location: Right mid pole. Size: 2.5 x 1.6 x 2.1 cm, volume 4.2 mL. Previously: 2.4 x 1.6 x 2.2 cm, volume 4.4 mL. Nodule characteristics: Composition: Solid/almost completely solid (2). Echogenicity: Isoechoic (1). Shape: Not taller than wide (0). Margins: Smooth (0). Echogenic Foci: None (0). ACR TI-RADS total points: 3 Previous: 3 ACR TI-RADS category: 3 Previous: 3 Significant change in size (>/= 20% in 2 dimensions and minimal increase of 2 mm or 50% or greater increase in volume): No Change in features: No Change in ACR TI-RADS risk category: No 2. Location: Left upper/mid pole. Size: 0.4 x 0.3 x 0.4 cm, volume 0.02 mL. Previously: 0.4 x 0.3 x 0.4 cm, volume 0.02 mL. Nodule characteristics: Composition: Solid/almost completely solid (2). Echogenicity: Hypoechoic (2). Shape: Not taller than wide (0). Margins: Ill-defined (0). Echogenic Foci: None (0). ACR TI-RADS total points: 4 Previous: 0 ACR TI-RADS category: 4 Previous: 1 Significant change in size (>/= 20% in 2 dimensions and minimal increase of 2 mm or 50% or greater increase in volume): No Change in features: Yes Change in ACR TI-RADS risk category: Yes NODES: No lymphadenopathy is seen in the tissue surrounding the thyroid gland. US/US soft tiss head and/or neck IMPRESSION: FNAs recommended of right midpole nodule if not previously performed. Thyroid US: 06/08/2022 Right Thyroid Lobe: 4.4 x 2.4 x 2.0 cm, volume 11.1 mL. Previously 4.5 x 2.4 x 2.3 cm, volume 12.9 mL. Parenchyma: The gland echotexture is heterogeneous. Thyroid vascularity is increased. Left Thyroid Lobe: 4.6 x 1.9 x 1.5 cm, volume 6.8 mL. Previously 3.9 x 0.9 x 1.6 cm, volume 2.9 mL. Parenchyma: The gland echotexture is heterogeneous. Thyroid vascularity is normal. Isthmus: 0.4 cm in maximum AP dimension. Previously 0.4 cm. Estimated total number of nodules greater than or equal to 1 cm: 1. Agricultural Chemicals Inspector nodules are described as follows: 1.? Location: Right mid. ?? ? Size: 2.3 x 1.3 x 2.2 cm, volume 3.4 mL. ?? ? Previously: 2.0 x 1.3 x 1.8 cm, volume 2.3 mL. ?? ? Nodule characteristics: ?? ? Composition: Solid/almost completely solid (2). ?? ? Echogenicity: Hyperechoic (1). ?? ? Shape: Not taller than wide (0). ?? ? Margins: Smooth (0). ?? ? Echogenic Foci: None (0). ? ACR TI-RADS total points: 3 Previous: 3 ?? ? ACR TI-RADS category: 3 Previous: 3 ? Significant change in size (>/= 20% in 2 dimensions and minimal increase of 2 mm or 50% or greater increase in volume): None ?? ? Change in features: None ?? ? Change in ACR TI-RADS risk category: No change 2.? Location: Right mid. ?? ? Size: 0.5 x 0.4 x 0.4 cm, volume 0.05 mL. ?? ? Previously: 0.4 x 0.3 x 0.5 cm, volume 0.03 mL. ?? ? Nodule characteristics: ?? ? Composition: Solid (2). ?? ? Echogenicity: Isoechoic (1). ?? ? Shape: Not taller than wide (0). ?? ? Margins: Smooth (0). ?? ? Echogenic Foci: None (0).? ACR TI-RADS total points: 3 Previous: 5 ?? ? ACR TI-RADS category: 3 Previous: 4 ? Significant change in size (>/= 20% in 2 dimensions and minimal increase of 2 mm or 50% or greater increase in volume): None ?? ? Change in features: None ?? ? Change in ACR TI-RADS risk category: Minimal. 3.? Location: Left superior. ?? ? Size: 0.3 x 0.2 x 0.3 cm, volume 0.01 mL. ?? ? Previously: 0.4 x 0.3 x 0.3 cm, volume 0.02 mL. ?? ? Nodule characteristics: ?? ? Composition: Solid (2). ?? ? Echogenicity: Hyperechoic (1). ?? ? Shape: Not taller than wide (0). ?? ? Margins: Smooth (0). ?? ? Echogenic Foci: None (0). ? ACR TI-RADS total points: 3 Previous: 4 ?? ? ACR TI-RADS category: 3 Previous: 4 ? Significant change in size (>/= 20% in 2 dimensions and minimal increase of 2 mm or 50% or greater increase in volume): None ?? ? Change in features: None ?? ? Change in ACR TI-RADS risk category: No change 4.? Location: Left mid. ?? ? Size: 0.5 x 0.3 x 0.3 cm, volume 0.02 mL. ?? ? Previously: 0.4 x 0.3 x 0.4 cm, volume 0.02 mL. ?? ? Nodule characteristics: ?? ? Composition: Solid (2). ?? ? Echogenicity: Isoechoic (1). ?? ? Shape: Not taller than wide (0). ?? ? Margins: Smooth (0). ?? ? Echogenic Foci: None (0).? ACR TI-RADS total points: 3 Previous: 3 ?? ? ACR TI-RADS category: 3 Previous: 3 ? Significant change in size (>/= 20% in 2 dimensions and minimal increase of 2 mm or 50% or greater increase in volume): None ?? ? Change in features: None ?? ? Change in ACR TI-RADS risk category: No change 5.? Location: Left inferior. ?? ? Size: 0.2 x 0.3 x 0.3 cm, volume 0.01 mL. ?? ? Previously: Not documented on the previous study. ?? ? Nodule characteristics: ?? ? Composition: Mixed cystic and solid (1). ?? ? Echogenicity: Cannot be determined (1). ?? ? Shape: Not taller than wide (0). ?? ? Margins: Smooth (0). ?? ? Echogenic Foci: Comet-tail artifacts (0).? ACR TI-RADS total points: 2 ?? ? ACR TI-RADS category: 2 NODES: No lymphadenopathy is seen in the tissue surrounding the thyroid gland. Labs: [facility] Medical History (Updated 04/24/24 @ 10:17 by Thea Diaz MD) Subclinical hypothyroidism Multinodular thyroid GERD (gastroesophageal reflux disease) COVID-19 vaccine series completed Depression Anxiety Hyperlipidemia Hypertension Right inguinal hernia Surgical History H/O vein stripping (06/13/21) Hx of biopsy Hx of colonoscopy History of appendectomy History of lumpectomy of left breast History of partial hysterectomy History of hernia surgery History of tonsillectomy History of shoulder replacement Family History Father Congestive heart failure Mother No problems noted. Social History Alcohol intake: never Patient Tobacco Use Status: Former Tobacco user Current occupational status: employed Current occupation: cafe , Right hand dominant Assessment & Plan Assessment & Plan (1) Multinodular thyroid: Code(s): E04.2 - Nontoxic multinodular goiter Category: Medical Plan: 73-year-old female with history of nontoxic multinodular goiter at least since 2018, who had biopsies of her right midpole 2.5 cm and left midpole 1.6 cm nodules in 2019 with benign cytology, who has been followed with repeat thyroid ultrasounds, with most recent ultrasound in January 2024 showing stable size of the right midpole nodule. The left midpole 1.6 cm complex cyst does not seen anymore instead ultrasound shows a subcentimeter left upper/mid pole nodule. None of these meet criteria for FNA given stable size since 2021. Patient has some mild dysphagia, however not too bothersome. Since she is reporting dysphagia, we will plan to see her back in 1 year for clinical exam but the plan to do next ultrasound in 2 years in January 2026, if that ultrasound shows stable size of the nodules we can consider stopping following these nodules unless there is any clinical changes. Plan: -follow up in 1 year clinical exam -next thyroid ultrasound January 2026 (2) Subclinical hypothyroidism: Code(s): E03.8 - Other specified hypothyroidism Category: Medical Plan: Patient's most recent labs from 04/11/2024 also showed TSH mildly elevated at 4.8, with normal free T4 of 1. 0 9. Consistent with subclinical hypothyroidism. Does not meet criteria for treatment. Especially given her elderly age, we expect TSH to slightly increase. I have asked her to repeat labs in 3 months. Plan: -ordered TSH, free T4 to be done in 3 months Plan See above Orders: Orders Thyroid Stimulating Hormone 3 Months E04.2 - Nontoxic multinodular goiter Thyroid Peroxidase Antibodies 3 Months E04.2 - Nontoxic multinodular goiter Free T4 (Free Thyroxine) 3 Months E04.2 - Nontoxic multinodular goiter Patient Instructions: Do blood work in 3 months, we will reach out with results I will see you back in 1 year , reach out sooner if having worsening swallowing Coding Level of Care Code Est Pt Level 4 (94855) Diagnoses Multinodular thyroid E04.2 Subclinical hypothyroidism E03.8
[2024-04-24 09:56] VITALS: BP 110/84; PULSE 58; BMI 35.0
== END 2024-04-24 10:15 | disposition home or self-care (01) ==
PROVIDERS: PCP Family Medicine; Visit Provider Student in an Organized Health Care Education/Training Program
DX: E04.2 Nontoxic multinodular goiter (principal); E03.8 Other specified hypothyroidism
CPT/HCPCS: 99214

== ENCOUNTER → 2024-04-24 09:52 | Outpatient (BNVA) | payer MEDICARE, SELFPAY | PROVIDERS: PCP Family Medicine; Visit Provider Student in an Organized Health Care Education/Training Program | DX: E04.2 Nontoxic multinodular goiter (principal); E03.8 Other specified hypothyroidism | CPT/HCPCS: 99212 ==

== ENCOUNTER → 2024-09-19 13:40 | Outpatient (BNV) | payer MEDICARE, SELFPAY | PROVIDERS: Visit Provider Internal Medicine | DX: C21.8 Malignant neoplasm of overlapping sites of rectum, anus and anal canal (principal) | CPT/HCPCS: 99204; G2211 ==

== ENCOUNTER 2024-11-06 12:57 | Day surgery (SDC) | payer MEDICARE, SELFPAY ==
[2024-11-06] VITALS (12 sets, daily range): BP systolic 126–148; BP diastolic 71–91; PULSE 50–72; RESP 16–20; TEMP 36.6–37.2; O2SAT 93–97; BMI 31.7
--- NOTE | ~2024-11-06 | IR_ITS ---
CLINICAL HISTORY: Rectal cancer. The patient presents to interventional radiology for placement of a port for chemotherapy. PROCEDURES: 1. Real-time ultrasound-guided access into the right internal jugular vein after documentation of selected vessel patency, and permanent image storing in the patient records. 2. Placement of a 6.6 Vincentian single-lumen port. CLINICIAN: Kyle Walton NP MEDICATIONS: - Versed , Fentanyl , Lidocaine 1% SQ -Antibiotics: Ancef 2g -For additional details, please see nursing flowsheet. Complications: None. Estimated blood loss: <5 ml Specimens: None. Contrast: None. Fluoroscopy time: 2.1 min MODERATE SEDATION TIME: 26 min PROCEDURE NOTE: The procedure, risks, benefits, and alternatives were carefully explained to the patient and written informed consent was obtained. The patient was placed supine on the fluoroscopy table. A timeout was performed. The right neck and chest was prepped and draped in usual sterile fashion. Maximum barrier technique was utilized. Local anesthesia was administered to the access site with 1% lidocaine. Under ultrasound guidance, the right internal jugular vein was accessed with a 5 fr micropuncture set. A 0.035 in wire was advanced into the IVC. A peel-away sheath was advanced over the wire and into the SVC, and the wire was removed. Next, subcutaneous lidocaine was administered to the chest. The port pocket was created after the skin incision, utilizing blunt dissection. Using blunt dissection, a subcutaneous tunnel was created that connects from the port pocket to the venotomy site. Through the peel-away sheath, the 6.6 Vincentian port catheter was placed. The catheter position was verified with fluoroscopy to be at the superior vena cava/right atrial junction. The port was connected to the catheter and was placed in the pocket. The port incision site was closed with interrupted 3-0 Vicryl subcutaneous sutures and surgical glue. Prior to closing the skin, 1 g of Ancef solution was placed in the pocket. The port was tested, flushed, and packed with heparin per routine protocol. The patient tolerated the procedure well. The patient was stable after the procedure and was transferred to the PACU. The procedure was performed under moderate sedation and with a dedicated nurse with continuous monitoring of vital signs. A permanent image of the ultrasound the neck and fluoroscopic image of the chest was saved and sent to PACS. FINDINGS: 1. Patent right internal jugular vein 2. Placement of a 6.6 Vincentian single lumen port. 3. Port flushes and aspirates very well with a 10 mL syringe. No pneumothorax. IR/IR cvc insert central tunnel IMPRESSION: Placement of a 6.6 Vincentian single-lumen port. PLAN: - The patient will be discharged home when stable by sedation protocol. - Port may be used immediately. This procedure was performed by Kyle Walton NP and directly supervised by Ruben Mcclain M.D. Electronically signed by: Ruben Mcclain MD 11/10/2024 04:33 PM EDT
[2024-11-06 13:25] LABS: MANUAL DIFF FLAG NO
[2024-11-06 13:33] LABS: Hematocrit 35.8 % (37.0-47.0); Hemoglobin 11.7 g/dl (12.0-16.0); Imm Gran Abs Auto 0.03 X10*3/uL (0.00-0.03); Imm Gran Pct Auto 0.6 % (0.0-0.4); Lymphocytes Absolute Auto 0.8 X10*3/uL (1.2-4.9); Mean Corpuscular HGB Conc 32.7 g/dl (31.0-35.0); Mean Corpuscular Hemoglobin 32.9 pg (27.0-33.0); Mean Corpuscular Volume 100.6 fL (80.0-98.0); NRBC Abs Auto 0.000 X10*3/uL (0.0-0.012); NRBC Pct Auto 0.0 /100WBC (0.0-0.2); Platelet Count 287 X10*3/uL (160-400); Red Blood Count 3.56 X10*6/uL (4.20-5.50); White Blood Count 4.9 X10*3/uL (4.8-10.8)
[2024-11-06 13:34] LABS: INTERNATIONAL NORM RATIO 0.9 (0.9-1.1); Prothrombin Time 10.7 SEC (10.9-12.4)
[2024-11-06 13:36] LABS: Partial Thromboplastin Time 27.0 SEC (26.0-36.8)
[2024-11-06 13:42] LABS: Anion Gap 13 (12-20); Blood Urea Nitrogen 15 mg/dL (9-16); Calcium 9.2 mg/dL (8.4-10.2); Carbon Dioxide 24 mmol/L (22-29); Chloride 105 mmol/L (96-108); Creatinine Clr Calc Pharmacy 87.4; Estimated Glomerular Filt Rate > 60; Potassium 3.9 mmol/L (3.3-5.1); Sodium 138 mmol/L (135-145)
== END 2024-11-06 17:04 | disposition home or self-care (01) ==
LOC: HO.SSS 12:58
PROVIDERS: Radiology Diagnostic Radiology; PCP Family Medicine; Visit Provider Internal Medicine
DX: C21.8 Malignant neoplasm of overlapping sites of rectum, anus and anal canal (principal); Z92.3 Personal history of irradiation; E78.5 Hyperlipidemia, unspecified; I10 Essential (primary) hypertension; E04.2 Nontoxic multinodular goiter; E03.8 Other specified hypothyroidism; K21.9 Gastro-esophageal reflux disease without esophagitis; F32.A Depression, unspecified; F41.9 Anxiety disorder, unspecified; Z79.899 Other long term (current) drug therapy; Z88.5 Allergy status to narcotic agent; Z88.8 Allergy status to other drugs, medicaments and biological substances; Z87.891 Personal history of nicotine dependence; Z98.890 Other specified postprocedural states
CPT/HCPCS: 36415; 36558; 80048; 85025; 85610; 85730; 99152; 99153; C1769; C1788; J0690; J1642; J1644; J2003; J2004; J2250; J3010

== ENCOUNTER → 2024-11-06 14:59 | Outpatient (BNV) | payer MEDICARE, SELFPAY | PROVIDERS: PCP Family Medicine | DX: C20 Malignant neoplasm of rectum (principal) | CPT/HCPCS: 76937; 77001 ==

== ENCOUNTER 2025-01-16 14:04 | Outpatient (REF) | payer MEDICARE, SELFPAY ==
--- NOTE | ~2025-01-16 | CT_ITS ---
EXAMINATION: CT ABDOMEN AND PELVIS WITH CONTRAST CLINICAL INFORMATION: Anorectal cancer , left lower quadrant pain. COMPARISON: Noncontrast CT dated September 06, 2020. TECHNIQUE: Multidetector volumetric images were obtained from the superior aspect of the liver through the pubic symphysis following administration 85 mL of Omnipaque 350 intravenous contrast. Sagittal and coronal reformatted images were obtained on the technologist's workstation. Oral contrast: No This CT examination was performed using dose optimization techniques as appropriate, variously including the following: *Automated exposure control *Adjustment of mA and/or kV according to patient size (this includes techniques or standardized protocols for targeted exams where dose is matched to indication/reason for exam; i.e. extremities or head) *Use of iterative reconstruction technique. DLP: 633 mGy centimeter. FINDINGS: LUNG BASES: 2 mm pulmonary nodules, right lung lobe. Nonspecific. LIVER, GALLBLADDER, AND BILIARY TREE: Liver measures 14 cm. Decreased enhancement pattern. No focal mass. The main portal veins and hepatic veins and intrahepatic portion of the IVC are patent. Gallbladder is nondistended. No pericholecystic fluid collection or gallbladder wall thickening. No intrahepatic or extrahepatic biliary ductal dilatation. PANCREAS: No focal mass. No peripancreatic fluid collection. No main pancreatic ductal dilatation. SPLEEN: 7 cm. No focal mass. ADRENAL GLANDS: No nodular lesion. Soft tissue fullness left adrenal gland. KIDNEYS AND URETERS: No hydronephrosis. No gross nephrolithiasis. Small morphology with renal cortical thinning. Cortical defect in the posterior lateral aspect of the lower pole of kidneys. No dilatation of the ureter BLADDER: Collapsed. GASTROINTESTINAL TRACT: Hiatal hernia, moderate to large volume. Abundant stool throughout the large intestine and limited the evaluation of the colonic wall and lumen. No intestinal obstruction pattern. No pneumatosis intestinalis. No ascites. No pneumoperitoneum. Numerous diverticula in the left hemicolon. I do not see the appendix. Terminal ileum is grossly normal. There is a focal, 2 cm defect in the posterior pelvic floor. ABDOMINAL WALL: Small tiny fat-containing supraumbilical hernia. Probable fat-containing femoral hernias bilaterally.. LYMPH NODES: 1.9 cm lymphadenopathy, left inguinal. No gross periaortic or mesenteric lymphadenopathy. VASCULAR: Throughout the thoracic and abdominal aorta and iliac arteries. Calcified plaques in the origin of the main renal arteries and both femoral arteries calcified plaques in the coronary arteries. No aneurysm or dissection, abdominal aorta. PELVIC VISCERA: There is a 2.9 cm partially calcified cystic lesion right adnexa. There is a 1.9 cm partially calcified cystic lesion, left adnexa. There are uterus is absent. OSSEOUS STRUCTURES: Dextroconvex curvature of the lumbar spine. Multilevel thoracolumbar spondylosis without acute fracture. Grade 1 retrolisthesis L1-2. Mild degenerative changes in the coxofemoral joints. Sclerosis and the sacroiliac joints. CT/CT abdomen pelvis w IV con IMPRESSION: 1.9 cm lymphadenopathy, left inguinal. Fleischner guidelines were followed. Electronically signed by: Jaylan Alexander MD 01/16/2025 02:44 PM EDT
[2025-01-16] MEDS: iohexoL 350 MG/ML 100 ML INFUS..BTL IV (14:30)
--- OUTSIDE RECORDS SUMMARY | 2025-01-16 17:01 | XMS_ITS | Encounter Summary ---
Author Organization [facility] Address [address] [place] [address] Phone Care Team Providers Care Tube Balancer Name Role Phone Hunter Kim MD Primary Care Provider + Self-Referred, Patient Unavailable Unavailab Jonathan Moya MD Unavailable [phone] Encounter Details Date Type Department Care Team (Late st Contact Info) Description 10/06/2024 Procedure Pass Nat[facility] Imaging Department, [facility], MRI [address] [id number] Social History Tobacco Use Types Packs/Day Years Used Date Smoking Tobacco: Former Cigarettes Smokeless Tobacco: Never Alcohol Use Standard Drinks/Week Comments Not Currently 0 (1 standard drink = 0.6 oz pur e alcohol) Education Answer Date Recorded Are you interested in more education? Not on farnaz e 09/25/2024 Are you concerned about learning? Not on file 09/25/2024 No 09/25/2024 No 09/25/2024 Digital Access Answer Date Recorded No 09/25/2024 No 09/25/2024 Reliable internet access at home? Not on file 09/25/2024 Device with a working camera? Not on file Comments Unknown Sex and Gender Information Value Date Recorded Sex Assigned at Female 09/22/2024 5:36 PM EDT Legal Sex Female 3:14 PM EDT Gender Identity Female 09/22/2024 5:36 PM EDT Sexual Orientation Straight 09/22/2024 5: 36 PM EDT documented as of this encounter Plan of Treatment Not on file documented as of this encounter Visit Diagnoses Not on filedocumented in this encounter Care Teams Tube Balancer Relationship Specialty Start Date End Date Hunter Kim MD [address] [place] [id number] PCP - General Family Medicine 09/08/24 Self-Referred, Patient 09/22/24 Jonathan Seaman MD [address] [place] [id number] [email or web address] 10/10/24 documented as of this encounter Additional Source Comments The information contained in this document represents components of the legal health record. It is not the complete legal health record[facility]
--- OUTSIDE RECORDS SUMMARY | 2025-01-16 17:01 | XMS_ITS | Clinical Summary ---
Author Organization [facility] Address [address] [place] [address] Phone Care Team Providers Care Molecular Spectroscopist Name Role Phone Hunter Kim MD Primary Care Provider + Self-Referred, Patient Unavailable Unavailab Jonathan Moya MD Unavailable [phone] Allergies No known active allergies Medications HYDROmorphone (DILAUDID) 2 MG tablet Take 2 mg by mouth 4 (four) times a day. 09/30/2024 Active LORazepam (ATIVAN) 1 MG tablet Take 1 mg by mouth 2 (two) times a day as needed for anxiety. Active pregabalin (LYRICA) 50 MG capsule Take 50 mg by mouth 2 (two) times a day. Active omeprazole (PRILOSEC) 20 MG capsule 20 mg daily. 10/03/2024 Activ e rOPINIRole (REQUIP) 0.5 MG tablet Take 0.5 mg by mouth daily. 03/13/2024 Active ezetimibe (ZETIA) 10 mg tablet Take 10 mg by mouth daily. 04/07/2024 Active metoprolol succinate (TOPROL-XL) 100 MG 24 hr tablet Take 100 mg by mouth daily. 09/05/2024 Active OLANZapine (ZYPREXA) 2.5 MG tablet Take 2.5 mg by mouth nightly at bedtime. Active hydroCHLOROthia zide 50 MG tablet Take 50 mg by mouth. 11/19/2023 Active Active Problems Problem Noted Date Diagnosed Date Anal cancer 10/13/2024 Cancer Staging:Clinical:Stage IIIA(cT2, cN1, cM0) - Signed by Jonathan Seaman MD on 10/13/2024 Encounters Date Type Department Care Team Description 12/15/2024 2:30 PM EDT [facility], [address], [address] [place] [phone] Jonathan Seaman MD Anal cancer (Primary Dx) 10/29/2024 2:08 PM EDT - 10/29/2024 11:59 PM EDT Hospital Encounter [facility] Radiology [address] [place] [address] Jonathan Seaman MD Discharge Disposition: Home or Self Care 10/27/2024 Telephone [facility], [address], [address] [place] [id number] Smita Goel, RN Care Coordination 10/17/2024 Orders Only [facility], [facility] [place] [facility] [place] [address] [facility] [address] [place] [address] Nancy Vieyra CNP 10/17/2024 Telephone [facility], [address], [address] [place] [phone] Jonathan Seaman MD 10/17/2024 Orders Only [facility], [address], [address] [place] [phone] Jonathan Seaman MD 10/16/2024 9:45 AM EDT - 10/16/2024 11:59 PM EDT Hospital Encounter [facility], [address] [address] Discharge Disposition: Home or Self Care from Last 3 Months Family History Medical History Relation Comments Colon cancer Neg Hx Social History Tobacco Use Types Packs/Day Years Used Date Smoking Tobacco: Former Cigarettes Smokeless Tobacco: Never Tobacco Cessation:Counseling Given: Not Answered Alcohol Use Standard Drinks/Week Comments Not Currently 0 (1 standard drink = 0.6 oz pur e alcohol) Child or Family Care Answer Date Record ed Do you have problems with on e of the following making it difficult for you to work, study, or receive health care? No 10/14/2024 Education Answer Date Recorded Are you interested in more education? Not on farnaz e 09/25/2024 Are you concerned about learning? Not on file 09/25/2024 No 09/25/2024 No 09/25/2024 Food Answer Date Recorded Within the past 6 months we worried whether our food would run out before we got money to buy more. Never True 10/14/2024 Within the past 6 months the food we bought just didn't last and we didn't have enough money to get more. Never True Residential Stability Answer Date Recor ded What is your housing situation today? I have mel sing 10/14/2024 How many times have you move d in the past 12 months? Zero (I did not move) 10/14/2024 Paying for Meds Answer Date Recorded Do you have trouble paying for medicines? No 10/14/2024 Paying Utility Bills Answer Date Record ed Do you have trouble paying your heating or elect ricity bill? No 10/14/2024 Transportation Answer Date Recorded Has the lack of transportati on kept you from medical appointments or from getting medications? No 10/14/2024 Digital Access Answer Date Recorded No 09/25/2024 [...] Orientation Straight 09/22/2024 5: 36 PM EDT Last Filed Vital Signs Vital Sign Reading Time Taken Comments Blood Pressure 138/94 10/13/2024 2:47 PM EDT Pulse 63 10/13/2024 2:47 PM EDT Temperature 36.2 C (97.2 F) 10/13/2024 2:47 PM EDT Respiratory Rate 16 10/13/2024 2:47 PM EDT Oxygen Saturation 97% 10/13/2024 2:47 PM EDT Inhaled Oxygen Concentration - - Weight 95.2 kg (209 lb 14.1 oz) 10/13/2024 2:47 PM EDT Height 165.4 cm (5' 5.12 ) 10/13/2024 2:47 PM ED T Body Mass Index 34.8 10/13/2024 2:47 PM EDT Plan of Treatment Health Maintenance Due Date Last Done Comments LIPID PANEL 1952 POTASSIUM LEVEL 1952 DEPRESSION SCREENING 1964 SMOKING Hx and SMOKELESS TOBACCO SCREENING 1965 HEPATITIS C SCREENING 1970 ZOSTER VACCINES (1 of 2) 08/12/1971 MAMMOGRAM 1992 COLOGUARD 1997 COLONOSCOPY 1997 COLORECTAL CANCER SCREENING 1997 FIT TEST 1997 FOBT 1997 SIGMOIDOSCOPY 1997 VIRTUAL COLONOSCOPY 1997 OSTEOPOROSIS SCREENING INITIAL (ONE-TIME) 2017 INFLUENZA VACCINE (#1) 2024 , 03/22/2023, 02/19/2022, Additional history exists COVID-19 VACCINE ( season) 2025 10/20/2022, 08/26/2021, 03/01/2021, Additional history exists Adult Td,Tdap Booster 08/26/2028 08/26/2018 PNEUMOCOCCAL VACCINES (50+ years) Completed 12/21/2022, 02/10/2019, 03/01/2018 RSV VACCINE Completed 05/31/2023 HEPATITIS A VACCINES Aged Out No long er eligible based on patient's age to complete this topic HIB VACCINES Aged Out No longer eligi ble based on patient's age to complete this topic MENINGOCOCCAL VACCINES (ACWY) Aged Out No longer eligible based on patient's age to complete this topic MENINGOCOCCAL VACCINES (B) Aged Out N o longer eligible based on patient's age to complete this topic Medical Devices Not on file Procedures Procedure Name Priority Date/Time Associated Diagnosis Comments NM PET CT SKULL BASE TO MID THIGHS Routine 10/29/2024 5:11 PM EDT Anal cancer POCT GLUCOSE Routine 10/29/2024 3:43 PM EDT from Last 3 Months Results * NM PET CT Skull Base to Mid Thighs (10/29/2024 5:11 PM EDT) Anatomical Region Laterality Modality Positron Emissio n Tomography (PET) 10/31/2024 12:1 8 PM EDT Impressions 11/03/2024 2:10 PM EDT 1. Decreased FDG-avidity and slightly decreased extent of FDG uptake in the anal region, consistent with at least partial response to treatment. Differential for the residual FDG uptake include postradiation inflammation versus residual active disease, or combination of both. 2. Previously FDG-avid left inguinal lymph nodes have decreased in size and FDG uptake, now demonstrating FDG uptake similar to that of blood pool, indicating treated disease. 3. No evidence of new FDG-avid metastatic disease. 4. Similar mildly FDG-avid right thyroid nodule. Focal FDG uptake in the thyroid gland may represent a primary thyroid malignancy or a thyroid adenoma. Recommend endocrinology consult or evaluation at [facility] (e.g., Ambulatory referral to [facility] Endocrinology or code REF [id number]). ATTESTATION: Corinna Chin, as teaching physician have reviewed the images, if any, for this patient's exam, and if necessary, have edited the report originally created by Liz Abreu. Narrative 11/03/2024 2:10 PM EDT Reason for exam (per EHR order): * Anal carcinoma, restaging Additional clinical information obtained from the EHR: 74-year-old female. Anorectal adenocarcinoma and received chemoradiation but unable to complete it due to severe dermatitis. Operative management would likely be needed. PET/CT to assess. Subsequent treatment strategy. TECHNIQUE: Radiopharmaceutical: F-18-FDG. Dose: 10.02 mCi. Blood glucose: 112 mg/dL. Image acquisition: At 71 minutes following IV tracer administration via a left antecubital fossa vein, positron emission tomography was performed from the base of the skull through the mid thigh. Non-contrast low-dose helical CT imaging was performed over the same range without breath-hold for attenuation correction of PET images and anatomic correlation. COMPARISON: Outside FDG PET/CT 06/26/2024. FINDINGS: HEAD AND NECK: Carotid artery calcifications. Similar thyroid nodule measuring 2.3 x 1.4 cm in the right thyroid gland with mild FDG uptake (SUV max 3.2, image 61). Subtle focus of FDG uptake in the left deep parotid gland, likely correlating with an ill-defined soft tissue nodularity, appears unchanged compared to prior scan, within the limitation of differences in technique, likely an intraparotid lymph node/nodule. CHEST: Ports and devices: None. Lungs: Subpleural groundglass opacity in the right lower base measuring 1.4 x 1.0 cm with associated FDG uptake (SUV max 3.7, image 103), likely inflammatory. Pleura: No abnormal FDG uptake. Lymph Nodes: Mildly FDG avid subcentimeter axillary and mediastinal lymph nodes bilaterally, likely reactive. Mediastinum: No abnormal FDG uptake. Coronary artery calcifications. Moderate sized hiatal hernia. Breasts/Chest Wall: No abnormal FDG uptake. ABDOMEN/PELVIS: Liver/biliary system: No abnormal FDG uptake. Pancreas: No abnormal FDG uptake. Spleen: No abnormal FDG uptake. Splenule. Adrenal Glands: No abnormal FDG uptake. Kidneys: No abnormal FDG uptake. Left parapelvic cyst. Bowel: Similar or slightly decreased extent of FDG uptake in the anal region compared to the prior PET/CT from 06/26/2024, measuring approximately 3 cm craniocaudally, site of biopsy-proven malignancy, SUVmax 7.8. Colonic diverticulosis. Focal FDG uptake in the sigmoid colon without associated peridiverticular fat stranding, likely physiological rather than inflammation. Mesentery, Omentum, and Peritoneum: No abnormal FDG uptake. Atherosclerosis of the aortobiiliac vessels is noted. Pelvic Organs: No abnormal FDG uptake. Right adnexal cyst is unchanged. Unchanged calcific foci in the left adnexa. Status post hysterectomy. Lymph Nodes: Mildly FDG-avid inguinal lymph nodes demonstrate uptake equal to or below blood pool. Two left inguinal lymph nodes have decreased in FDG-avidity, and now show uptake below blood pool, with stable size. For example, one node measures 1.7 cm in short axis on image 259 (SUV max 1.9) and another measures 1.0 cm inferiorly on image 277 (SUV max 2.4). Musculoskeletal: Multilevel degenerative changes of the spine. Diffuse FDG uptake surrounding the right shoulder prosthesis, likely inflammatory in nature. Procedure Note Corinna Anderson MD - 11/03/2024 Reason for exam (per EHR order): * Anal carcinoma, restaging Additional clinical information obtained from the EHR: 74-year-old female.Anorectal adenocarcinoma and received chemoradiation but unable tocomplete it due to severe dermatitis. Operative management would likely beneeded. PET/CT to assess. Subsequent treatment strategy. TECHNIQUE: Radiopharmaceutical: F-18-FDG. Dose: 10.02 mCi. Blood glucose: 112 mg/dL. Image acquisition: At 71 minutes following IV tracer administration via aleft antecubital fossa vein, positron emission tomography was performedfrom the base of the skull through the mid thigh. Non-contrast low-dosehelical CT imaging was performed over the same range without breath-holdfor attenuation correction of PET images and anatomic correlation. COMPARISON: Outside FDG PET/CT 06/26/2024. FINDINGS: HEAD AND NECK: Carotid artery calcifications. Similar thyroid nodule measuring 2.3 x 1.4 cm in the right thyroid glandwith mild FDG uptake (SUV max 3.2, image 61). Subtle focus of FDG uptake in the left deep parotid gland, likelycorrelating with an ill-defined soft tissue nodularity, appears unchangedcompared to prior scan, within the limitation of differences in technique,likely an intraparotid lymph node/nodule. CHEST: Ports and devices: None. Lungs: Subpleural groundglass opacity in the right lower base measuring1.4 x 1.0 cm with associated FDG uptake (SUV max 3.7, image 103), likelyinflammatory. Pleura: No abnormal FDG uptake. Lymph Nodes: Mildly FDG avid subcentimeter axillary and mediastinal lymphnodes bilaterally, likely reactive. Mediastinum: No abnormal FDG uptake. Coronary artery calcifications.Moderate sized hiatal hernia. Breasts/Chest Wall: No abnormal FDG uptake. ABDOMEN/PELVIS: Liver/biliary system: No abnormal FDG uptake. Pancreas: No abnormal FDG uptake. Spleen: No abnormal FDG uptake. Splenule. Adrenal Glands: No abnormal FDG uptake. Kidneys: No abnormal FDG uptake. Left parapelvic cyst. Bowel: Similar or slightly decreased extent of FDG uptake in the analregion compared to the prior PET/CT from 06/26/2024, measuringapproximately 3 cm craniocaudally, site of biopsy-proven malignancy,SUVmax 7.8. Colonic diverticulosis. Focal FDG uptake in the sigmoid colon withoutassociated peridiverticular fat stranding, likely physiological ratherthan inflammation. Mesentery, Omentum, and Peritoneum: No abnormal FDG uptake.Atherosclerosis of the aortobiiliac vessels is noted. Pelvic Organs: No abnormal FDG uptake. Right adnexal cyst is unchanged.Unchanged calcific foci in the left adnexa. Status post hysterectomy. Lymph Nodes: Mildly FDG-avid inguinal lymph nodes demonstrate uptake equalto or below blood pool. Two left inguinal lymph nodes have decreased inFDG-avidity, and now show uptake below blood pool, with stable size. Forexample, one node measures 1.7 cm in short axis on image 259 (SUV max 1.9)and another measures 1.0 cm inferiorly on image 277 (SUV max 2.4). Musculoskeletal: Multilevel degenerative changes of the spine. Diffuse FDGuptake surrounding the right shoulder prosthesis, likely inflammatory innature. IMPRESSION: 1. Decreased FDG-avidity and slightly decreased extent of FDG uptake inthe anal region, consistent with at least partial response to treatment.Differential for the residual FDG uptake include postradiationinflammation versus residual active disease, or combination of both. 2. Previously FDG-avid left inguinal lymph nodes have decreased in sizeand FDG uptake, now demonstrating FDG uptake similar to that of bloodpool, indicating treated disease. 3. No evidence of new FDG-avid metastatic disease. 4. Similar mildly FDG-avid right thyroid nodule. Focal FDG uptake in thethyroid gland may represent a primary thyroid malignancy or a thyroidadenoma. Recommend endocrinology consult or evaluation at [facility] (e.g., Ambulatory referral to [facility] Endocrinology or code [id number]). ATTESTATION: Corinna Chin, as teaching physician have reviewed the images,if any, for this patient's exam, and if necessary, have edited the reportoriginally created by Liz Abreu. us Jonathan Seaman MD IMG NM PET Final Resul t * (ABNORMAL) POCT Glucose (10/29/2024 3:43 PM EDT) Glucose, POCT 112(H) 70 - 100 mg/dL [facility] NURSING DEPARTMENT 10/29/2024 3:43 PM EDT 10/29/2024 3:49 PM EDT us Jonathan Seaman MD POINT OF CARE TEST ORDERABL ES Final Result [facility] NURSING DEPARTMENT [address] [place] [phone] from Last 3 Months Insurance [employer] MEDEX SUPPLEMENT MEDICARE PART A & B [employer] MEDEX SUPPLEMENT MEDICARE PART A & B [facility] MEDEX SUPPLEMENT MEDICARE PART A & B [employer] MED[employer] SUPPLEMENT MEDICARE PART A & B [employer] MEDEX SUPPLEMENT MEDICARE PART A & B [employer] SUPPLEMENT MEDICARE PART A & B Care Teams Molecular Spectroscopist Relationship Specialty Start Date End Date Hunter Kim MD [address] [place] [id number] PCP - General Family Medicine 09/08/24 Self-Referred, Patient 09/22/24 Jonathan Seaman MD [address] [place] [id number] [email or web address] Medical Oncology 10/10/24 Additional Source Comments The information contained in this document represents components of the legal health record. It is not the complete legal health record.[facility]
== END 2025-01-16 14:05 | disposition home or self-care (01) ==
LOC: HO.CT 14:04
PROVIDERS: PCP Family Medicine; Visit Provider Internal Medicine
DX: C21.8 Malignant neoplasm of overlapping sites of rectum, anus and anal canal (principal)
CPT/HCPCS: 74177; Q9967

== ENCOUNTER → 2025-01-16 14:05 | Outpatient (BNV) | payer MEDICARE, SELFPAY | PROVIDERS: PCP Family Medicine; Visit Provider Radiology Diagnostic Radiology | DX: R10.32 Left lower quadrant pain (principal) | CPT/HCPCS: 74177 ==

== ENCOUNTER 2025-04-14 12:50 | Outpatient (REF) | payer SELFPAY | END 2025-04-14 12:51 | disposition home or self-care (01) | LOC: HO.HAP 12:50 | PROVIDERS: Visit Provider Family Medicine | DX: Z46.1 Encounter for fitting and adjustment of hearing aid (principal) | CPT/HCPCS: 92593 ==